=== PATIENT | male | born 1935 | race Caucasian/White ===

== ENCOUNTER → 2024-01-06 11:08 | Outpatient (REF) | payer MEDICARE, OTHER, SELFPAY ==
[2024-01-06 11:40] LABS: Blood Urea Nitrogen 22 mg/dl (9-20); Calcium 8.6 mg/dl (8.4-10.2); Carbon Dioxide 25 mmol/L (22-30); Chloride 101 mmol/L (98-107); Glucose 84 mg/dl (70-99); Potassium 4.2 mmol/L (3.5-5.1); Sodium 136 mmol/L (135-145); eGFR > 60.00
== END ==
LOC: OLABN 11:08
PROVIDERS: ATTENDING PHYSICIAN Student in an Organized Health Care Education/Training Program
DX: I10 Essential (primary) hypertension (principal)
CPT/HCPCS: 36415; 80048

== ENCOUNTER → 2024-05-05 09:29 | Outpatient (REF) | payer MEDICARE, OTHER, SELFPAY ==
[2024-05-05 10:19] LABS: % Basophils 0.5 % (0-2); % Eosinophils 2.9 % (0-6); % Immature Granulocytes 0.6 % (0-0.5); % Lymphocytes 22.1 % (20.5-51.1); % Monocytes 8.1 % (1.7-9.3); % Neutrophils 65.8 % (42.2-75.2); Absolute Basophils 0.1 10^3/uL (0-0.2); Absolute Eosinophils 0.3 10^3/uL (0-0.7); Absolute Immature Granulocytes 0.1 10^3/uL (0-0.05); Absolute Lymphocytes 2.3 10^3/uL (1.2-3.4); Absolute Monocytes 0.8 10^3/uL (0.1-0.6); Absolute Neutrophils 6.9 10^3/uL (1.4-6.5); Hemoglobin 10.8 g/dL (13.0-18.0); Mean Corp Hgb Conc. 30.9 g/dL (33.0-37.0); Mean Corpuscular Hgb 26.7 pg (27.0-31.0); Mean Corpuscular Volume 86.6 fL (80.0-94.0); Mean Platelet Volume 10.6 fL (7.4-10.4); Nucleated Red Blood Cells % 0 % (-); Platelet Count 178 10^3/uL (130-400); Red Blood Cell Count 4.04 10^6/uL (4.70-6.10); Red Cell Dist. Width 14.8 % (11.5-14.5); White Blood Cell Count 10.4 10^3/uL (4.8-10.8)
[2024-05-05 10:34] LABS: ALT (SGPT) 28 U/L (0-50); AST (SGOT) 30 U/L (17-59); Albumin 3.3 g/dl (3.5-5.0); Alkaline Phosphatase 105 U/L (38-126); Blood Urea Nitrogen 26 mg/dl (9-20); Calcium 8.7 mg/dl (8.4-10.2); Carbon Dioxide 26 mmol/L (22-30); Chloride 104 mmol/L (98-107); Glucose 86 mg/dl (70-99); Potassium 4.3 mmol/L (3.5-5.1); Sodium 140 mmol/L (135-145); Total Bilirubin 0.7 mg/dl (0.2-1.3); Total Protein 6.2 g/dl (6.3-8.2)
== END ==
LOC: OLABN 09:29
PROVIDERS: ATTENDING PHYSICIAN Student in an Organized Health Care Education/Training Program
DX: I10 Essential (primary) hypertension (principal)
CPT/HCPCS: 36415; 80053; 85025

== ENCOUNTER 2024-06-04 08:13 | Inpatient (IN) | payer MEDICARE, OTHER, SELFPAY ==
[2024-06-04] VITALS (36 sets, daily range): BP systolic 70–165; BP diastolic 33–120
[2024-06-04] MEDS: NSS 1000 IV ×5 (03:09→17:13)
[2024-06-04] MEDS: ATROPINE 0.1 MG/ML SYRINGE 0.5 MG IV ×2 (03:14→07:06)
[2024-06-04 03:18] LABS: % Basophils 0.6 % (0-2); % Eosinophils 1.4 % (0-6); % Immature Granulocytes 0.9 % (0-0.5); % Lymphocytes 17.6 % (20.5-51.1); % Monocytes 7.4 % (1.7-9.3); % Neutrophils 72.1 % (42.2-75.2); Absolute Basophils 0.1 10^3/uL (0-0.2); Absolute Eosinophils 0.2 10^3/uL (0-0.7); Absolute Immature Granulocytes 0.1 10^3/uL (0-0.05); Absolute Lymphocytes 2.4 10^3/uL (1.2-3.4); Absolute Neutrophils 9.7 10^3/uL (1.4-6.5); Hematocrit 34.8 % (39.0-52.0); Hemoglobin 11.2 g/dL (13.0-18.0); Mean Corp Hgb Conc. 32.2 g/dL (33.0-37.0); Mean Corpuscular Hgb 26.9 pg (27.0-31.0); Mean Corpuscular Volume 83.5 fL (80.0-94.0); Mean Platelet Volume 9.7 fL (7.4-10.4); Nucleated Red Blood Cells % 0 % (-); Platelet Count 221 10^3/uL (130-400); Red Blood Cell Count 4.17 10^6/uL (4.70-6.10); Red Cell Dist. Width 15.9 % (11.5-14.5); White Blood Cell Count 13.4 10^3/uL (4.8-10.8)
[2024-06-04 03:43] LABS: ALT (SGPT) 44 U/L (0-50); AST (SGOT) 40 U/L (17-59); Albumin 3.6 g/dl (3.5-5.0); Alkaline Phosphatase 144 U/L (38-126); Blood Urea Nitrogen 52 mg/dl (9-20); Calcium 8.9 mg/dl (8.4-10.2); Carbon Dioxide 19 mmol/L (22-30); Chloride 104 mmol/L (98-107); Glucose 111 mg/dl (70-99); Magnesium 2.2 mg/dl (1.6-2.3); Sodium 135 mmol/L (135-145); Total Bilirubin 0.8 mg/dl (0.2-1.3); Total Protein 6.6 g/dl (6.3-8.2); Troponin I 0.015 ng/ml; eGFR 26.64
--- NOTE | 2024-06-04 04:53 | ED.GENMED ---
History of Present Illness
General
Chief Complaint: Heart Rate Problem
Source: ambulance crew and custodial
Exam Limitations: dementia
Time Seen by Provider: 06/04/24 03:07
Nursing documentation reviewed up to this point in time: agreed with
History of Present Illness
History of Present Illness:
This is an 88-year-old gentleman, chronic resident of local custodial. He has history of dementia, A-fib, CHF, hypertension, hyperlipidemia, anemia, GI bleed.
He is sent to the ED by custodial staff after discovering during routine vital sign check tonight that his heart rate was low, blood pressure was low and reported pulse ox was low.
Patient apparently has remained asymptomatic, at his baseline mental state and baseline functional status.
According to EMS, noted to be bradycardic in the 40s to 50s without hypotension and without hypoxia. Normal pulse ox. Has not required supplemental oxygen.
Upon review of custodial records. Patient is chronically maintained on propranolol 20 mg twice daily.
Newer medications include mirtazapine 7.5 mg that was started May 11, 2024.
A nutritional/vitamin supplement EVENTA was started May 21.
Due to advanced dementia and what I suspect is language barrier, history from patient is severely limited.
shelter records note full CODE STATUS.
Past History
Past History
ED Past Medical History: Arrthythmia (Chronic A-fib), CHF, HTN, Hypercholesterolemia and Other (Dementia; anemia, GI bleed)
ED Past Surgical History: Appendectomy
Social History
Personal:
Living: custodial
Employment: Retired
Family History
Family History: Unable to obtain
Phy Exam
Physical Exam
Physical Exam:
GENERAL: 88-year-old gentleman appears somewhat chronically debilitated. Sleeps when undisturbed, easily arousable. Once awake he does follow a few simple questions and overall appears in no acute distress.
EYE: pupils equal and reactive. anicteric
NECK: Supple, nontender, no meningismus, no significant adenopathy.
ENT: posterior pharynx is clear, oral mucosa is dry. No rhinorrhea.
CARDIAC: Irregularly irregular, bradycardic, no murmur.
LUNGS: Clear breath sounds bilaterally, no acute respiratory distress, no wheezes/rales/rhonchi
ABDOMEN: Soft, nondistended, without focal tenderness, normoactive bowel sounds. No palpable masses.
NEUROLOGICAL: Awake, follows a few simple commands. No focal neuro deficits.
SKIN: Warm and dry, normal color, skin intact. No rash.
MUSCULOSKELETAL: +1 pitting edema bilateral lower extremities, peripheral pulses are full and equal b/l. No palpable tenderness.
PSYCH: Normal and appropriate interaction.
Course
Orders/Labs/Results
Orders:
Orders
06/04/24 02:39
EKG- Treatment ONCE
06/04/24 02:41
EKG [Electrocardiogram (*1)] Urgent
Reason for Study: Bradycardia / Tachycardia
EKG- Treatment ONCE
06/04/24 03:01
Complete Blood Count/With Diff Urgent
Comprehensive Metabolic Panel Urgent
Magnesium Urgent
TSH Reflex To Free T4 Urgent
Troponin I Urgent
06/04/24 03:09
0.9% Sodium Chloride 1000 ml [Nss] 1,000 ml IV BOLUS
Atropine Sulfate [Atropine 0.1 mg/ml Syringe] 0.5 mg IV NOW STA
06/04/24 03:12
Atropine Sulfate [Atropine 0.1 mg/ml Syringe] 1 mg .ROUTE .STK-MED ONE
06/04/24 04:00
0.9% Sodium Chloride 1000 ml [Nss] 1,000 ml IV BOLUS
06/04/24 04:52
Lactic Acid Urgent
06/04/24 04:57
Bladder Scan- Treatment ONCE
06/04/24 05:27
Lorazepam [Ativan] 1 mg IM NOW STA
06/04/24 05:31
Urinalysis Reflex To Culture Routine
Comment: RECOLLECT
06/04/24 06:08
Basic Metabolic Panel Urgent
06/04/24 06:27
Restraints - Non Violent As Directed
Justification-Patient:: 1-Attempts to remove tube
Restraint Type-: Soft Limb-L&R Wrist/4rail
Apply From (date): 06/04/24
Apply from (time): 06:28
Remove (date): 06/05/24
Remove (time): 23:59
06/04/24 06:30
0.9% Sodium Chloride 1000 ml [Nss] 1,000 ml IV BOLUS
06/04/24 06:42
CXR Port [CR Chest Portable - 1 View] Urgent
Comment:
Reason For Exam: Hypothermia
Reason Study Needs to be Portable: Unable to Transport
06/04/24 06:47
Atropine Sulfate [Atropine 0.1 mg/ml Syringe] 0.5 mg IV NOW STA
Abnormal Lab Results
06/04/24 06/04/24
03:01 06:08
WBC 13.4 H 10^3/uL
(4.8-10.8)
RBC 4.17 L 10^6/uL
(4.70-6.10)
Hgb 11.2 L g/dL
(13.0-18.0)
Hct 34.8 L %
(39.0-52.0)
MCH 26.9 L pg
(27.0-31.0)
MCHC 32.2 L g/dL
(33.0-37.0)
RDW 15.9 H %
(11.5-14.5)
Abs Immat Gran (auto) 0.1 H 10^3/uL
(0-0.05)
Absolute Neuts (auto) 9.7 H 10^3/uL
(1.4-6.5)
Absolute Monos (auto) 1.0 H 10^3/uL
(0.1-0.6)
Immature Gran % 0.9 H %
(0-0.5)
Lymphocytes % 17.6 L %
(20.5-51.1)
Potassium 6.0 H mmol/L 5.8 H mmol/L
(3.5-5.1) (3.5-5.1)
Chloride 110 H mmol/L
(98-107)
Carbon Dioxide 19 L mmol/L 17 L mmol/L
(22-30) (22-30)
BUN 52 H mg/dl 47 H mg/dl
(9-20) (9-20)
Creatinine 2.3 H mg/dL 2.2 H mg/dL
(0.7-1.3) (0.7-1.3)
Glucose 111 H mg/dl 102 H mg/dl
(70-99) (70-99)
Calcium 8.2 L mg/dl
(8.4-10.2)
Alkaline Phosphatase 144 H U/L
(38-126)
06/04/24 03:01
06/04/24 06:08
Vital Signs
Initial and Last Documented VS:
Initial Vital Signs
Temp Pulse Ox
96.3 F L 96
06/04/24 02:44 06/04/24 02:44
Last Documented Vital Signs
Temp Pulse Resp BP Pulse Ox
96.3 F L 56 17 110/45 100
06/04/24 02:44 06/04/24 06:15 06/04/24 06:15 06/04/24 05:00 06/04/24 06:01
MDM/Problems Addressed
Differential Diagnosis Includes:
Patient presents with bradycardia. EKG shows atrial fibrillation with slow ventricular response. Somewhat soft blood pressure. Overall appears comfortable. Pulse ox is normal and no respiratory distress.
Concern for electrolyte abnormality, AV davy disease, inadvertent beta-charity overdose however less likely that patient resides in a custodial.
Will give an IV dose of atropine, IV fluids. Labs are pending.
*Pulse Oximetry
Patient hypoxic: no
*EKG
Interpreted by ED Provider?: Yes
Interpretation: abnormal
Comparison EKG: changes noted (Bradycardia is new compared to previous. A-fib is chronic)
Rate: bradycardiac
Rhythm: a-fib
Mcrae: normal axis
Interval: long QT
QRS Pattern: normal QRS
Ischemia: no ischemia
*Mica Laminating Machine Feeder Interpretation
Rate: bradycardiac
Interpretation: abnormal
Rhythm: a-fib
*Critical Care Note
Total Time (30-74mins, 75-104mins- exclusive of procedures): 40
comment:
Critical care statement: A total of 40 minutes of critical care time was provided for this patient. This includes management of unstable vital signs, evaluation of the patient at bedside, reviewing the patient's pertinent medical records, discussion
with consultants, review of old EKGs and review of pertinent medical records. This time with separate from time utilized to perform the aforementioned documented procedures
Update Note
Update Note:
06:30
Hypotension has improved with IV fluids and heart rate has improved after an IV dose of atropine.
Labs are remarkable for acute kidney injury with BUN and creatinine elevated 52/2.3. Uptrend from previous of 1.5 of 1 month ago.
Potassium 6.0.
Clinically patient appears dehydrated.
He has received near 2 L normal saline.
Bladder scan 400 mL, has been straight cathed for 450 mL of significantly cloudy urine. No definitive evidence of urinary retention and according to records no prior history of BPH nor urinary retention.
Lactic acid is normal.
Concern for UTI. Urinalysis is pending. Will continue IV fluids, continue nuclear monitoring technician and admit to hospitalist service.
Will recheck BMP. If potassium remains elevated will treat with IV dextrose, insulin, bicarb and calcium.
ED Attending Note
-
Portions of this chart may have been created with voice recognition software.� Occasional wrong word or��sound alike� substitutions may have occurred due to the inherent limitations of voice recognition software.
Discharge Plan
Departure
Patient Disposition: Admit
Date of Disposition: 06/04/24
Time of Disposition: 05:44
Admit to: Telemetry
Admit to doctor: Melvin
Presentation/result/management discussed w/ accepting MD/DO: Hospitalist
Condition: Serious
Discharge Problem:
atrial fibrillation with bradycardia, Hypotension, Acute kidney injury
Prescriptions:
No Action
furosemide 40 mg Tablet
40 mg PO DAILY
primidone 50 mg Tablet
100 mg PO HS
acetaminophen 325 mg Tablet
650 mg PO Q4H PRN (Reason: pain/fever)
enalapril maleate 10 mg Tablet
10 mg PO DAILY
magnesium hydroxide [Milk of Magnesia] 400 mg/5 mL Suspension
30 ml PO DAILY PRN (Reason: no BM)
propranolol 20 mg Tablet
20 mg PO BID
Eventa
1 cap PO DAILY
bisacodyl 10 mg Suppository
10 mg KS BID PRN (Reason: constipation) Qty: 12 0RF
Enema 19-7 gram/118 mL Enema
135 ml KS DAILYPRN PRN (Reason: constipation) Qty: 133 0RF
Rx Instructions:
prn unresponsive to suppositories
polyethylene glycol 3350 17 gram Powder In Packet
17 g PO DAILY Qty: 30 0RF
memantine 10 mg Tablet
10 mg PO DAILY Qty: 30 0RF
pantoprazole 40 mg Tablet,Delayed Release (Dr/Ec)
40 mg PO BID Qty: 60 0RF
sertraline 25 mg Tablet
25 mg PO DAILY
mirtazapine 7.5 mg Tablet
7.5 mg PO HS
Referrals:
Smooth Gordon DO [Family Provider] -
Interventions
Interventions:
*Risk Screen - Suicide Last Done: 06/04/24 02:44
*General Assessment Last Done: 06/04/24 02:44
*Neglect/Abuse Screening Last Done: 06/04/24 02:44
*ED COVID-19 Vaccine History Last Done: 06/04/24 02:44
ED- Cardiac Assessment Last Done: 06/04/24 02:44
ED- Pulmonary Assessment Last Done: 06/04/24 02:44
Discharge Date and Time
Print Language: GREENLANDIC
[2024-06-04 05:32] LABS: Lactic Acid 0.9 mmol/L (0.7-2.0)
[2024-06-04] MEDS: ATIVAN 1 MG IM (05:44)
[2024-06-04 06:42] LABS: Blood Urea Nitrogen 47 mg/dl (9-20); Calcium 8.2 mg/dl (8.4-10.2); Carbon Dioxide 17 mmol/L (22-30); Chloride 110 mmol/L (98-107); Glucose 102 mg/dl (70-99); Potassium 5.8 mmol/L (3.5-5.1); Sodium 138 mmol/L (135-145)
--- NOTE | 2024-06-04 06:57 | HPS.HSE ---
Addendum entered and electronically signed by Juan Charles DO 06/04/24 07:23:
Addendum:
At bedside when Doss catheter placed. Grossly purulent urine returned and draining into device.
Patient more alert s/p second dose of atropine and Doss placement.
Begin IV abx for clearly infected urine.
Septic shock - continue IVFs +/- pressors as needed.
Follow for clinical improvement. Follow-up culture data.
Original Note:
Family Physician
-
Family Physician: Smooth Gordon, DO
Chief Complaint
-
Bradycardia / Hypotension / Hypoxemia
History of Present Illness
Patient is an 88y M with PMH significant for dementia, CHF and A-Fib who presents to ED from local [facility] for evaluation of bradycardia, hypotension and hypoxemia. During routine rounds this evening, patient was found to have HR = 40, BP = 80/50 and
SpO2 = 76% RA. He had no complaints and per HI staff seemed at his baseline mental status at that time. He was sent to the ED for further evaluation and treatment. In the ED patient was hypotensive and bradycardic. He was note hypoxemic here.
He received a 0.5mg dose of atropine with improvement in his BP and HR. EKG showed slow A-Fib / junctional bradycardia.
Labs revealed patient to be in ZULAY with hyperkalemia.
Unfortunately, patient then became agitated, combative and aggressive with staff in the ED. He was given Ativan 1mg IV.
At the time of my examination, patient is poorly responsive and is again bradycardic in the 40s and hypotensive with SBP in the 70s.
Medical History
Past Medical History
Past Medical History: Reports Other
Additional Past Medical History:
Senile Dementia
Atrial fibrillation
HFpEF
Hypertension
Essential Tremor
GERD
Past Surgical History: Reports Other
Additional Past Surgical History:
Unknown
Social History
Unable to obtain full social history at this time due to: Dementia
Family History
Family History: Unable to Obtain
Allergies / Home Medications
Allergies reflects when Allergies were last updated in [facility].
Home Medications with original date entered in [facility]
Allergy/Medication List:
Allergies
Allergy/AdvReac Type Severity Reaction Status Date / Time
No Known Allergies Allergy Verified 06/04/24 02:41
Home Medications
Eventa 1 cap PO DAILY 06/24/22
acetaminophen 325 mg tablet 650 mg PO Q4H PRN pain/fever 06/24/22
enalapril maleate 10 mg tablet 10 mg PO DAILY 06/24/22
furosemide 40 mg tablet 40 mg PO DAILY 06/24/22
magnesium hydroxide 400 mg/5 mL oral suspension (Milk of Magnesia) 30 ml PO DAILY PRN no BM 06/24/22
primidone 50 mg tablet 100 mg PO HS 06/24/22
propranolol 20 mg tablet 20 mg PO BID 06/24/22
bisacodyl 10 mg rectal suppository 10 mg [place] BID PRN constipation #12 ea 06/29/22
memantine 10 mg tablet 10 mg PO DAILY #30 tabs 06/29/22
pantoprazole 40 mg tablet,delayed release 40 mg PO BID #60 tabs 06/29/22
polyethylene glycol 3350 17 gram oral powder packet 17 g PO DAILY #30 ea 06/29/22
sodium phosphates 19 gram-7 gram/118 mL enema (Enema) 135 ml [place] DAILYPRN PRN constipation #133 mL 06/29/22
mirtazapine 7.5 mg tablet 7.5 mg PO HS 06/04/24
sertraline 25 mg tablet 25 mg PO DAILY 06/04/24
Review of Systems
-
Unable to obtain full review of systems at this time due to: Dementia
Physical Exam
Vital Signs
Vital Signs
Temp Pulse Resp BP Pulse Ox
96.3 F L 56 17 110/45 100
06/04/24 02:44 06/04/24 06:15 06/04/24 06:15 06/04/24 05:00 06/04/24 06:01
Physical Exam
General: Other (Lethargic / poorlry responsive 88y M )
HEENT: Other (Dry MM. Neck supple.)
Respiratory: Clear; No Wheezes, Rales or Rhonchi
Cardiac: S1/S2 and Bradycardia
GI: Soft, Non Tender, Non Distended and Normal Bowel Sounds
Musculoskeletal: No Clubbing, No Cyanosis and Other (1+ edema at the ankles bilaterally.)
Laboratory Results
-
06/04/24 03:01
06/04/24 06:08
Laboratory Results
Lactic Acid 0.9 mmol/L (0.7-2.0) 06/04/24 04:52
Total Bilirubin 0.8 mg/dl (0.2-1.3) 06/04/24 03:01
AST 40 U/L (17-59) 06/04/24 03:01
ALT 44 U/L (0-50) 06/04/24 03:01
Alkaline Phosphatase 144 U/L (38-126) H 06/04/24 03:01
Troponin I 0.015 ng/ml 06/04/24 03:01
Impression/Plan
-
A/P: Patient is an 88y M with PMH significant for dementia, A-Fib and hypertension who present sto ED from local [facility] for evaluation and hypotension and bradycardia
Bradycardia
Hypotension
Hypothermia
- Admit for further evaluation and treatment.
- Responded briefly to atropine - second dose given now.
- Recurrent bradycardia / hypotension (? related to Ativan dose).
- Epinephrine infusion for now and titrate as needed.
- Hold propranolol.
- Check flu status.
- Cardiology evaluation for additional recommendations.
ZULAY
Hyperkalemia
- Place Doss now.
- Hold PO medications including Lasix and enalapril.
- IVF support.
- Follow for improvement in labs / lytes.
Permanent Atrial Fibrillation
Benign Hypertension
- Holding all meds as noted above with slow heart rates and low BP.
Senile Dementia with Behavioral Disturbance
- Avoid further sedating medications.
- Hold mirtazapine which is his newest added medication (started 05/11/24).
DVT Prophylaxis: SCDs
Code Status: Full
Attempted to call . No answer. Generic voice mail - no message left.
[2024-06-04] MEDS: ROCEPHIN 1000 MG IV (07:35)
[2024-06-04] MEDS: STERILE WATER FOR INJECTION 10 ML IV (07:35)
[2024-06-04 07:44] LABS: Urine Albumin 3+ (Neg - Trace); Urine Bilirubin Negative (Negative); Urine Character Cloudy (Clear); Urine Color Yellow; Urine Glucose Negative (Negative); Urine Ketone Negative (Negative); Urine Leukocyte 3+ (Negative); Urine Nitrite Negative (Negative); Urine Occult Blood 4+ (Negative); Urine Specific Gravity 1.015 (<1.030); Urine Urobilinogen Negative (Neg - 1+)
[2024-06-04 08:18] LABS: Urine White Cell >100 /HPF (0-5)
--- NOTE | 2024-06-04 09:20 | PTOTSP ---
Per chart review on last admission in 2022, the patient is a long-term care resident, total care and Alayna lift at baseline. No functional goals to warrant PT consult, will sign off.
--- NOTE | 2024-06-04 09:48 | PTCARENOTE ---
Pt rec'd from ED into ICU 3372, pulled over to bed. Per chart review, pt is total care, non ambulatory, Hx Lewey body dementia noted. Pt restrained per ED. Doss in place draining milky urine. Pt's HR currently in 50-60s, hx PAF noted. Order for
cards consult rec'd. Pt not meeting parameters to initiate Epi infusion at this time. Pt oriented to room and plan of care by nursing staff, orders reviewed, safe environment maintained. Bed alarm in place and activated.
[2024-06-04 10:54] LABS: Troponin I 0.014 ng/ml
[2024-06-04 11:10] LABS: Blood Urea Nitrogen 44 mg/dl (9-20); Carbon Dioxide 18 mmol/L (22-30); Chloride 108 mmol/L (98-107); Estimated Creatinine Clearance 34 ml/min; Glucose 82 mg/dl (70-99); Potassium 4.8 mmol/L (3.5-5.1); Sodium 137 mmol/L (135-145)
--- NOTE | 2024-06-04 11:16 | CON.INTV ---
Consultation
Consultation Request
Date/Time Consultation Requested: 06/04/2024-1 PM
Date/Time Consultation Performed: 06/04/2024-1:30 PM
Requesting Provider: Hospitalist
Performing Provider: Dr. Betts
Reason for Consultation: Sepsis
Medical History
-
Chief Complaint: Bradycardia, hypotension, sepsis
History of Present Illness:
88-year-old male with underlying Lewy body dementia, atrial fibrillation, heart failure preserved EF, hypertension, GERD presented with bradycardia, hypotension and hypoxemia found to have UTI and septic shock-carpenter assistant consulted for septic
shock/critical care management 06/04/2024. Patient is confused and nonverbal at this time. Review of systems was unobtainable.
Past Medical History
Past Medical History: None (Hypertension. Atrial fibrillation. Dementia. Essential tremor. GERD. History of GI bleed. Diverticulosis. Renal calculi. Appendectomy. Left inguinal hernia repair.)
Social History
Tobacco: Non-smoker
Alcohol: None
Drug: None
Occupational Exposures: No known asbestos exposure
Environmental Exposures: No known tuberculosis exposure
Family History
Family History: Reviewed & Not Pertinent
Allergies / Home Medications
Allergies
Allergy/AdvReac Type Severity Reaction Status Date / Time
No Known Allergies Allergy Verified 06/04/24 02:41
Home Medications
�Medication �Instructions �Recorded �Confirmed �Last Taken �Type
Eventa 1 cap PO BID 06/24/22 06/04/24 Unknown History
acetaminophen 325 mg tablet 650 mg PO Q4HPRN PRN mild 06/24/22 06/04/24 Unknown History
pain/fever
enalapril maleate 10 mg tablet 10 mg PO DAILY 06/24/22 06/04/24 Unknown History
furosemide 40 mg tablet 40 mg PO DAILY 06/24/22 06/04/24 Unknown History
magnesium hydroxide 400 mg/5 mL 30 ml PO DAILYPRN PRN no BM 06/24/22 06/04/24 Unknown History
oral suspension (Milk of Magnesia)
primidone 50 mg tablet 100 mg PO HS 06/24/22 06/04/24 Unknown History
propranolol 20 mg tablet 20 mg PO BID 06/24/22 06/04/24 Unknown History
memantine 10 mg tablet 10 mg PO DAILY #30 tabs 06/29/22 06/04/24 Unknown Rx
polyethylene glycol 3350 17 gram 17 g PO DAILY #30 ea 06/29/22 06/04/24 Unknown Rx
oral powder packet
bisacodyl 10 mg rectal suppository 10 mg [place] BIDPRN PRN if no bm aftr 06/04/24 06/04/24 Unknown History
mom
mirtazapine 7.5 mg tablet 7.5 mg PO HS 06/04/24 06/04/24 Unknown History
pantoprazole 40 mg tablet,delayed 40 mg PO DAILY 06/04/24 06/04/24 Unknown History
release
sertraline 25 mg tablet 25 mg PO DAILY 06/04/24 06/04/24 Unknown History
sodium phosphates 19 gram-7 135 ml [place] DAILYPRN PRN if no bm 06/04/24 06/04/24 Unknown History
gram/118 mL enema (Enema) aftr dulcalax
Review of Systems
-
Unable to Obtain full review of systems at this time due to: Other (Per HPI)
Vitals / Labs / Diagnostic Testing
Vital Signs
Temp Pulse Resp BP Pulse Ox
96.3 F L 61 15 133/58 100
06/04/24 02:44 06/04/24 10:30 06/04/24 10:30 06/04/24 10:00 06/04/24 10:15
Lab Data
06/04/24 03:01
06/04/24 10:31
Microbiology
06/04/24 07:23 Nasal Swab Influenza Types A & B (CYNTHIA) - Final
Negative for Influenza A & B, NAAT
Negative results must be combined with clinical observations
and patient history.
Nucleic Acid Amplification test (NAAT)performed on the
[employer] platform.
Diagnostic Testing:
Physical Exam
-
Exam:
Well-nourished and well-developed in no apparent distress
HEENT-atraumatic, normocephalic
Neck-supple, no JVD, no bruit
Heart irregular with systolic murmur
Chest with diminished breath sounds, coarse breath sounds and few rhonchi
Abdomen-soft, nontender, nondistended, no hepatosplenomegaly
Extremities-no cyanosis, clubbing, edema and good peripheral pulses
Integument-intact, no rashes, lesions or ecchymosis
Neurologically not alert, not oriented moving extremities
Assessment
-
88-year-old male with underlying Lewy body dementia, atrial fibrillation, heart failure preserved EF, hypertension, GERD presented with bradycardia, hypotension and hypoxemia found to have UTI and septic shock-carpenter assistant consulted for septic
shock/critical care management 06/04/2024.
Septic shock unresponsive to fluids requiring pressors
Bradycardia-status post atropine x 2
Hypothermia
Leukocytosis
Igumam-shzcymhsik-focdnvrhct 11.2
ZULAY
Metabolic acidosis
Mild hyperglycemia
Conditions present prior to admission:
Hypertension.
Atrial fibrillation-permanent.
Dementia.
Essential tremor.
GERD.
History of GI bleed.
Diverticulosis.
Renal calculi.
Appendectomy. Left inguinal hernia repair.
Plan
Admit patient to medical intensive care unit for persistent hypotension despite fluid resuscitation requiring pressors
Supplement oxygen as needed
High flow oxygen if needed
BiPAP if necessary
Intubate and mechanically ventilate if necessary
Aspiration precautions
Nebulizers if needed
Obtain cultures
Empiric antibiotics
Consider Infectious disease consultation
Monitor leukocytosis
Fluid resuscitation with 30 mL/kg crystalloid-preferably lactated ringer-(less ZULAY) with subsequent boluses as needed
Monitor lactate
Follow CVP if possible
Attempt noninvasive bedside tissue perfusion evaluation to see if fluid bolus responsive
Measure pulse pressure and stroke volume variation if patient on ventilator, passively breathing without arrhythmia and with temporary large tidal volume ventilation and if > 13% then likely fluid bolus responsive
If patient active then consider measuring bedside leg lift for 3 minutes and if cardiac output increases or if there is a rise of 2-4 on end-tidal CO2 then fluid bolus
If bedside ultrasound available then measure IVC diameter variation to evaluate for fluid bolus responsiveness
Begin pressors as needed for MAP goal of [id number] first, then Vasopressin and consider Angiotensin II if continues to be hypotensive, consider epinephrine or dopamine in this patient but is bradycardic
Consider methylene blue if available-specific inhibitor of induced nitric oxide synthase iNOS and its downstream enzyme soluble guanylate cyclase-noninferiority study shown to reduce time to vasopressor discontinuation, decreased ICU length of stay,
hospital stay but no change in mortality-published Critical Care 07/02/2022
If persistently hypotensive then consider checking random cortisol-hydrocortisone if random less than 3, if 3-15 then consider ACTH stimulation test
If persistently hyperthermic then correcting hyperthermia can decrease pressor requirements, increased chances of reversal of shock and decrease mortality
Monitor arrhythmias-atropine given
Cardiology consultation
Beta-blockers on hold
Epinephrine if needed
Monitor renal function
Nephrology evaluation if renal function does not improve with fluids
Monitor acidosis-bicarb if needed
DVT prophylaxis-mechanical, recent GI bleed, consider pharmacological with close observation
Early nutrition if possible-aspiration precautions
Early mobilization/bedside range of motion
Establish CODE STATUS
Critical care statement: A total of 65 minutes of critical care time was provided for this patient today. This includes management of unstable vital signs, evaluation of the patient at bedside, reviewing the patient's pertinent medical records
including radiographs, pressor management, microbiology, laboratory evaluations, and discussion with primary team, consultants, pharmacy, nutrition, physical therapy, case management, charge nurse, critical care nursing, and respiratory therapy.
Diagnostic data:
Chest x-ray 06/24/2022-bibasilar opacifications, suspected mild vascular congestion
Chest x-ray 06/04/2024-basilar opacification suspicious for pneumonia
Data Reviewed
-
EKG: Report reviewed by me
Radiology: Report reviewed by me
CT Scan: Report reviewed by me
Medical Tests (Nuc Med, Echo etc): Report reviewed by me
Labs: Labs reviewed by me
Old Records: Reviewed
Critical Care Time (in minutes): 65
--- NOTE | 2024-06-04 11:30 | CON.CAR ---
Addendum entered and electronically signed by Kim Evans DO 06/04/24 12:22:
I saw and examined the patient.
The Manager Games's note was reviewed and I agree with the note.
Comment: I had the pleasure to see Mr. Salvador in ICU bed 3372 with nursing present. Patient is overall a poor historian with underlying Lewy body dementia. He offers no specific complaints except repeating that he is 'ok' and 'strong'. Patient
came to ER very early this morning from his [place] [facility] with complaints of low HR, low BP and was admitted with UTI and sepsis, cardiology is now consulted for bradycardia. Patient was last admitted to 06/2022 in the setting of GI bleed and at that
time he was thought to have permanent A-fib. 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 Patient was taking propranolol 20 mg twice daily prior to admission. Patient is not chronically
anticoagulated as far back as 2022 admission presumably due to age and patient/family choice. In ER this morning the patient was noted to be hypothermic and HR was low with underlying AF. Patient was given a total of atropine x 2. Although
blood pressures were initially low that improved without need for pressors. In the ER he also had Doss catheter placed with dixon purulent drainage and he is being treated for sepsis. No reports of CP or SOB. Overnight, heart rates remained in
the 50s to 60s without significant bradycardia arrhythmia or pauses.
GEN: 88-year-old frail gentleman. No acute distress.
HEENT: Mucous membranes moist
LUNGS: RA. CTA B/L without audible wheeze
CV: Irregularly irregular. Positive S1-S2. No murmurs
ABD: soft, BS+, NT, ND
EXT: Trace B/L LE edema.
SKIN: No rash
: +Doss catheter in place with cloudy urine with sediment
Plan:
88-year-old gentleman with history of Lewy body dementia and permanent atrial fibrillation not on chronic anticoagulation presents from halfway with hypotension, hypothermia being treated for septic shock, presumed source
-Blood pressures have stabilized not requiring pressors
-Lactic acid 0.9
-Patient with permanent atrial fibrillation on propranolol noted to be bradycardic in the 40s requiring atropine in the ED.
-Overnight heart rates have improved; telemetry atrial fibrillation with heart rates in the 50s and 60s without significant bradycardia arrhythmia or pauses.
-Will check a 2D echocardiogram
-Continue to hold AV davy blocking agents
-No acute ischemic changes on EKG. Patient unreliable historian but no reports of chest pain. Troponin 0.015 and 0.014.
-Influenza negative. Blood and urine cultures pending. Antibiotics will be deferred to primary
Permanent atrial fibrillation not chronically anticoagulated
- Slow atrial fibrillation on admission in the setting of septic shock, acute renal sufficiency, hyperkalemia, hypothermia on outpatient propranolol. Received atropine x 2 in the ED.
- Heart rates have improved.
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
- Patient was last admitted to 06/2022 in the setting of GI bleed and at that time he was thought to have permanent A-fib. 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
- Hold outpatient propranolol and avoid AV davy blocking agents at this time.
- No current indication for PPM placement
- TSH within normal limit
Acute renal insufficiency with baseline creatinine in December 2023 1
-Creatinine on admission 2.3. Repeat creatinine 1.7 after Doss insertion
-Potassium initially 5.8 and has improved to 4.7
-Maintain Doss
-Antibiotics for presumed UTI
-Continue to hold enalapril and Lasix
History of Lewy body dementia- Noted
Will attempt to contact family to obtain additional information and to discuss CODE STATUS.
Original Note:
Consultation
Consultation Request
Date/Time Consultation Requested: 06/04/24
Date/Time Consultation Performed: 06/04/24
Requesting Provider: Dr. Charles
Performing Provider: Dr. Evans
Reason for Consultation: bradycardia
Medical History
-
History of Present Illness:
Patient came to ER very early this morning from his [place] [facility] with complaints of low HR, low BP and was admitted with UTI and sepsis, cardiology is now consulted for bradycardia. Patient was last admitted to 06/2022 in the setting of GI bleed and
at that time he was thought to have permanent A-fib. 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 Patient was taking propranolol 20 mg twice daily prior to admission. Patient is not chronically
anticoagulated as far back as 2022 admission presumably due to age and patient/family choice. In ER this morning the patient was noted to be hypothermic and HR was low with underlying AF. Patient was given a total of atropine x 2 and there was
an order for Epi gtt to start, but it is not currently running. HR now is 64 and he remains in permanent AF. In the ER he also had Doss catheter placed with dixon purulent drainage and he is being treated for sepsis. No reports of CP or SOB.
PMH:
Persistent to permanent Afib
Not chronically anticoagulated due to age and patient choice
Previous admission to for GIB 06/23/22 until 06/29/22
Lewy body dementia
Past Medical History
Past Medical History: Other (in HPI)
Past Surgical History: Other (hernia repair 2012)
Social History
Tobacco: Non-Smoker
Alcohol: None
Drug: None
Living: [facility]
Family History
Family History: Unable to Obtain
Allergies / Home Medications
Allergy/AdvReac Type Severity Reaction Status Date / Time
No Known Allergies Allergy Verified 06/04/24 02:41
�Medication �Instructions �Recorded �Confirmed �Type
Eventa 1 cap PO BID 06/24/22 06/04/24 History
acetaminophen 325 mg tablet 650 mg PO Q4HPRN PRN mild 06/24/22 06/04/24 History
pain/fever
enalapril maleate 10 mg tablet 10 mg PO DAILY 06/24/22 06/04/24 History
furosemide 40 mg tablet 40 mg PO DAILY 06/24/22 06/04/24 History
magnesium hydroxide 400 mg/5 mL 30 ml PO DAILYPRN PRN no BM 06/24/22 06/04/24 History
oral suspension (Milk of Magnesia)
primidone 50 mg tablet 100 mg PO HS 06/24/22 06/04/24 History
propranolol 20 mg tablet 20 mg PO BID 06/24/22 06/04/24 History
memantine 10 mg tablet 10 mg PO DAILY #30 tabs 06/29/22 06/04/24 Rx
polyethylene glycol 3350 17 gram 17 g PO DAILY #30 ea 06/29/22 06/04/24 Rx
oral powder packet
bisacodyl 10 mg rectal suppository 10 mg [place] BIDPRN PRN if no bm aftr 06/04/24 06/04/24 History
mom
mirtazapine 7.5 mg tablet 7.5 mg PO HS 06/04/24 06/04/24 History
pantoprazole 40 mg tablet,delayed 40 mg PO DAILY 06/04/24 06/04/24 History
release
sertraline 25 mg tablet 25 mg PO DAILY 06/04/24 06/04/24 History
sodium phosphates 19 gram-7 135 ml [place] DAILYPRN PRN if no bm 06/04/24 06/04/24 History
gram/118 mL enema (Enema) aftr dulcalax
Review of Systems
-
History Source: Patient
All other systems: Negative unless noted
Physical Exam
Vital Signs
Temp Pulse Resp BP Pulse Ox
96.3 F L 61 15 133/58 100
06/04/24 02:44 06/04/24 10:30 06/04/24 10:30 06/04/24 10:00 06/04/24 10:15
GEN: NAD. Awake and alert.
HEENT: EOMI, MMM
LUNGS: RA. CTA B/L without audible wheeze
CV: Afib on tele. Reg, S1/S2, no murmur
ABD: soft, BS+, NT, ND
EXT: Trace B/L LE edema. No clubbing, cyanosis or lesions B/L
NEURO: Gross non-focal
SKIN: No rash
: +Doss catheter in place with cloudy urine with sediment
Lab Results
06/04/24 03:01
06/04/24 10:31
Troponin I 0.014 ng/ml 06/04/24 10:12
Impression / Plan
-
PCP: Dr. Smooth Gordon
Cardiology: Unknown
Impression:
Admitted with bradycardia, sepsis and UTI 06/04/24
Sepsis
UTI, purulent drainage from Doss
Persistent to permanent Afib with slow ventricular response
Not chronically anticoagulated due to age and patient choice
ZULAY
Hyperkalemia
Previous admission to for GIB 06/23/22 until 06/29/22
Lewy body dementia
Echo 06/04/24: Study pending
Plan:
-Patient came to [place] very early this morning [place] [facility] with complaints of low HR, low BP and was admitted with UTI and sepsis, cardiology is now consulted for bradycardia. Patient was last admitted to 06/2022 in the setting of GI bleed and
at that time he was thought to have permanent A-fib. 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 Patient was taking propranolol 20 mg twice daily prior to admission. Patient is not chronically
anticoagulated as far back as 2022 admission presumably due to age and patient/family choice. In ER this morning the patient was noted to be hypothermic and HR was low with underlying AF. Patient was given a total of atropine x 2 and there was
an order for Epi gtt to start, but it is not currently running. HR now is 64 and he remains in permanent AF. In the ER he also had Doss catheter placed with dixon purulent drainage and he is being treated for sepsis. No reports of CP or SOB.
-ECG reviewed by me shows A-fib with slow VR. No acute ischemic changes
-Patient with at least persistent and possibly even permanent AF. No clear documentation of previous attempts at rhythm control and at last admission 06/2022 it was reported that he was permanent A-fib.
-Now with bradycardia and so outpatient dose of propranolol 20 mg twice daily is on hold. Would not restart AV davy agent
-Patient was given atropine x 2 doses earlier today.
-Currently HR is 64 bpm. No current indication for PPM placement and would continue to follow HR as infection resolves and propranolol washes out.
-Check echo
-Troponin serially normal.
--- NOTE | 2024-06-04 15:29 | W.PN.HOSP.TC ---
Today's Communication/Plan
-
Assessment / Plan
Assessment / Plan
Gen-AAOx3, NAD
HEENT-NC, AT, anicteric, clear oral mm
Neck-supple
CV-reg, no M, +S1/S2
Lungs-clear B/L
Abd-soft, NT, ND
Musculoskeletal-no edema, no deformity
Skin-warm and dry
Neuro-grossly non-focal
Psych-calm, cooperative
Mr. Salvador is a 88-year-old male with medical history of Lewy body dementia, HFpEF, essential tremor, and A-fib who presented from, and A-fib who presented from local senior living with bradycardia, hypotension, and hypoxia. He was found to have
heart rate of 40, BP 80/50, SpO2 76% on room air. He was at his baseline mental status at the time and was sent to the ED for further evaluation. In the ED EKG showed slow A-fib with junctional bradycardia. He was also hypotensive. He was given
dose of atropine with improvement in his BP and heart rate. He later became aggressive with ED staff and was given a dose of IV Ativan after which she was somnolent, bradycardic, and hypotensive. He was bolused 2.5 L of resuscitative fluids and
vasopressors were ordered. Labs revealed leukocytosis of 13,000, ZULAY with a creatinine of 1.7, and urinalysis showing gross pyuria. Doss catheter was placed with purulent urinary output. He has been admitted to the ICU for further evaluation and
management of septic shock secondary to suspected urinary tract infection.
Septic shock:
-Suspect secondary to urinary tract infection
-Continue antibiotic treatment with ceftriaxone 1 g IV daily
-Continue aggressive resuscitative fluids
-Vasopressors as needed
-Follow-up cultures
ZULAY:
-Suspect secondary to poor perfusion in the setting of septic shock
-Continue IV fluids and treatment of underlying urinary tract infection
-Monitor for renal recovery
-Holding TJ inhibitor
Permanent A-fib:
-Holding rate control medications due to bradycardia and hypotension
Lewy body dementia:
-With behavioral disturbance
-Hold sedating medications as able
-Mirtazapine was recently added on 05/11/2024
CODE STATUS:
Anticipated Discharge: > 48 hours
Subjective/Interval History
-
Date of Service: June 04, 2024
Patient was seen and examined at bedside this morning. Resting comfortably. No acute distress.
Objective Data
-
Labs:
Laboratory Results
06/04/24 06/04/24 06/04/24
03:01 06:08 10:31
Sodium 135 138 137
Potassium 6.0 H 5.8 H 4.8
Chloride 104 110 H 108 H
Carbon Dioxide 19 L 17 L 18 L
BUN 52 H 47 H 44 H
Creatinine 2.3 H 2.2 H 1.7 H
Glucose 111 H 102 H 82
Calcium 8.9 8.2 L 8.0 L
Total Bilirubin 0.8
AST 40
ALT 44
Alkaline Phosphatase 144 H
Vital Signs:
Vital Signs
Temp Pulse Resp BP Pulse Ox
97.6 F 86 20 148/120 100
06/04/24 11:40 06/04/24 15:00 06/04/24 15:00 06/04/24 15:00 06/04/24 15:00
I&O
06/03/24 06/04/24 06/05/24
06:59 06:59 06:59
Intake Total 500 / 500
Output Total 500 / 500
Balance 0 / 0
Review of Systems
-
Unable to obtain full review of systems at this time due to: Acuity
Physical Exam
-
General: Appears Chronically Ill
--- NOTE | 2024-06-04 16:04 | PTCARENOTE ---
Pt reassessed. Remains calm and cooperative, however confused, asking for his mother...forgetful to place and situation. Asking for cup of coffee-orders for diet rec'd per attending. Q2T maintained, restraints in place for safety. VSS with no need
for pressors this shift. See flowsheet. Plan discussed with multiple members of care team. Safe environment maintained, bed alarm in place and armed.
[2024-06-04] MEDS: TYLENOL 650 MG PO (20:04)
[2024-06-05] VITALS (14 sets, daily range): BP systolic 104–150; BP diastolic 37–73; BMI 26.4
[2024-06-05] MEDS: NSS 1000 IV ×2 (02:22→08:37)
[2024-06-05 05:23] LABS: Hematocrit 35.1 % (39.0-52.0); Hemoglobin 11.1 g/dL (13.0-18.0); Mean Corp Hgb Conc. 31.6 g/dL (33.0-37.0); Mean Corpuscular Hgb 26.4 pg (27.0-31.0); Mean Corpuscular Volume 83.6 fL (80.0-94.0); Mean Platelet Volume 9.6 fL (7.4-10.4); Platelet Count 196 10^3/uL (130-400); Red Cell Dist. Width 15.8 % (11.5-14.5)
[2024-06-05 05:37] LABS: Blood Urea Nitrogen 31 mg/dl (9-20); Calcium 8.2 mg/dl (8.4-10.2); Carbon Dioxide 15 mmol/L (22-30); Chloride 110 mmol/L (98-107); Estimated Creatinine Clearance 44 ml/min; Glucose 81 mg/dl (70-99); HDL Cholesterol 28 mg/dl; LDL Cholesterol, Calculated 95 mg/dl; Sodium 138 mmol/L (135-145); Total Cholesterol 149 mg/dl (50-199); Triglyceride 131 mg/dl (10-149); Very Low Density Lipoprotein 26 mg/dl (0-30); eGFR 52.84
--- NOTE | 2024-06-05 07:40 | W.PN.INTV ---
Today's Communication / Plan
Recommendations
Wean pressors
Antibiotics
CODE STATUS change
Transfer out of ICU-call pulmonary if respiratory issues arise
Assessment
-
88-year-old male with underlying Lewy body dementia, atrial fibrillation, heart failure preserved EF, hypertension, GERD presented with bradycardia, hypotension and hypoxemia found to have UTI and septic shock-inspector bicycle consulted for septic
shock/critical care management 06/04/2024.
Septic shock unresponsive to fluids requiring pressors
Bradycardia-status post atropine x 2
Hypothermia
Leukocytosis
Uqydsd-apanuxuqcu-eqjjekqelz 11.2
ZULAY
Metabolic acidosis
Mild hyperglycemia
DNR
Conditions present prior to admission:
Hypertension.
Atrial fibrillation-permanent.
Dementia.
Essential tremor.
GERD.
History of GI bleed.
Diverticulosis.
Renal calculi.
Appendectomy. Left inguinal hernia repair.
Plan
Hemodynamics have improved
Supplemental oxygen as needed
BiPAP if necessary
Now a DNR status-DO NOT INTUBATE if respiratory status worsens
Aspiration precautions per protocol
Nebulizers if needed
Cultures reviewed
Urine culture 06/04/2024-Enterococcus
Blood cultures negative
Influenza negative
MRSA screen pending
Empiric antibiotics-currently on ceftriaxone
Follow leukocytosis
Decrease IV fluids
Lactate trended
Wean pressors
Monitor arrhythmias-atropine given
Cardiology consultation noted-correspondence reviewed
Beta-blockers on hold
Epinephrine if needed
Monitor renal function
Nephrology evaluation if renal function does not improve with fluids
Monitor acidosis-bicarb if needed
DVT prophylaxis--Lovenox initiated
Early nutrition if possible-aspiration precautions
Early mobilization/bedside range of motion
If able to be weaned off pressors then transfer out of ICU-call pulmonary if respiratory issues arise
Critical care statement: A total of 38 minutes of critical care time was provided for this patient today. This includes management of unstable vital signs, evaluation of the patient at bedside, reviewing the patient's pertinent medical records
including radiographs, pressor management, microbiology, laboratory evaluations, and discussion with primary team, consultants, pharmacy, nutrition, physical therapy, case management, charge nurse, critical care nursing, and respiratory therapy.
Diagnostic data:
Chest x-ray 06/24/2022-bibasilar opacifications, suspected mild vascular congestion
Chest x-ray 06/04/2024-basilar opacification suspicious for pneumonia
Subjective Dataa
Subjective Data
Date of Service:
Date of Service: June 05, 2024
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
Subjective:
Lethargic but no respiratory distress, no complaints
Review of Systems
General: Other (Per HPI)
Objective Data
Data Reviewed
Vital Signs / I&O / Oxygen:
Vital Signs
Temp Pulse Resp BP Pulse Ox
98.3 F 94 17 136/63 99
06/05/24 04:06 06/05/24 05:01 06/05/24 05:01 06/05/24 05:00 06/05/24 05:01
Intake and Output
06/04/24 06/05/24 06/06/24
06:59 06:59 06:59
Intake Total 2300 / 2300
Output Total 2450 / 2450
Balance -150 / -150
SaO2 99
Physical Exam
General: Respiratory Distress (n) and Comfortable
HEENT: Normocephalic, Anicteric and Moist Mucous Membranes
Cardiovascular: Regular Rhythm and Murmur
Respiratory: Wheeze (n), Crackles, Rhonchi (n), Non-Labored Respirations and Accessory Resp Muscle Use (n)
GI: Soft, Non Distended and Non Tender
Neurology: Alert and No Motor Deficits
Skin: Warm, Good Color, Cyanosis (n) and Jaundice (n)
Labs/Micro/Reports
Lab Data
06/05/24 04:55
06/05/24 04:55
Microbiology
06/04/24 07:23 Nasal Swab Influenza Types A & B (CYNTHIA) - Final
Negative for Influenza A & B, NAAT
Negative results must be combined with clinical observations
and patient history.
Nucleic Acid Amplification test (NAAT)performed on the
[employer] platform.
--- NOTE | 2024-06-05 08:00 | PTCARENOTE ---
Pt rec'd from night RN, drowsy /arousable, oriented to self (baseline) follows commands, DAWSON, restraints in place. VSS on room air, bradycardic on tele, BPs WNL. IVF infusing, sarmiento in place, see flowsheet. Pt fed breakfast, poor appetite noted.
Oral and sarmiento care provided, Q2T maintained. Bed alarm in place for safety.
--- NOTE | 2024-06-05 08:34 | CM ---
Chart reviewed
Patient is a [facility] resident [facility] since 2020
Spoke with Deann at [facility]
PLOF: total care bed to w/c via will
PCP: Smooth Gordon
[facility]armacy: [facility]
PLAN: Return to [facility] when medically stable.
[facility]
Report #: [phone]
Fax #: [phone]
[2024-06-05] MEDS: STERILE WATER FOR INJECTION 10 ML IV (08:37)
[2024-06-05] MEDS: ROCEPHIN 1000 MG IV (08:37)
--- NOTE | 2024-06-05 09:36 | W.PN.CARDCBS ---
Today's Communication / Plan
-
observe off propranolol
Impression / Plan
-
PCP: Dr. Smooth Gordon
Cardiology: Unknown
Impression:
Admitted with bradycardia, sepsis and UTI 06/04/24
Sepsis
UTI, purulent drainage from Doss
Persistent to permanent Afib with slow ventricular response
Not chronically anticoagulated due to age and patient choice
ZULAY
Hyperkalemia
Previous admission to for GIB 06/23/22 until 06/29/22
Lewy body dementia
Echo 06/04/24: EF 55-60%, PASP 54mmHg, mild MR
Plan:
Heart rate is improved off propranolol. ECG with heart rate in 60's, somewhat higher on telemetry
He appears comfortable.
Echo is satisfactory
ZULAY is improved
Treatment of urosepsis per primary service.
Continue to monitor heart rate, restart low dose metoprolol if tachycardiac
Eventual resumption of enalapril and furosemide?
Clinical summary: 88-year-old man with Lewy body dementia and permanent atrial fibrillation admitted with hypotension and hypothermia on June 14, presumed sepsis, bradycardic in the emergency department on propranolol with heart rates in the
40s treated with atropine. Clinical sepsis, influenza and COVID-negative, not anticoagulated
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
Subjective
Date of Service: June 05, 2024:
He is comfortable
Medications: Ceftriaxone IV
136/63, pulse 94, respirate 17, afebrile, sats 99%, weight is 90.8 kg, up 0.8 kg, intake and output roughly even, lungs clear, ireg rate and rhythm, JVD is OK, 1 + edema
Chest x-ray: Coarse markings
Troponin 0.014, BUN and creatinine 31 and 1.3, creatinine had been 1.7, BUN had been 44, potassium is 5
EKG: Atrial fibrillation with slow ventricular response this morning
Objective
Labs:
06/05/24 04:55
06/05/24 04:55
Labs
Hgb 11.1 g/dL (13.0-18.0) L 06/05/24 04:55
Hct 35.1 % (39.0-52.0) L 06/05/24 04:55
Plt Count 196 10^3/uL (130-400) 06/05/24 04:55
Sodium 138 mmol/L (135-145) 06/05/24 04:55
Potassium 5.0 mmol/L (3.5-5.1) 06/05/24 04:55
BUN 31 mg/dl (9-20) H 06/05/24 04:55
Creatinine 1.3 mg/dL (0.7-1.3) 06/05/24 04:55
Glucose 81 mg/dl (70-99) 06/05/24 04:55
Troponins
06/04/24 06/04/24 06/04/24
03:01 10:12 15:09
Troponin I 0.015 0.014 Cancelled
06/04/24
21:09
Troponin I Cancelled
Vital Signs and I&O:
Vital Signs
Temp Pulse Resp BP Pulse Ox
37.2 C 94 17 136/63 99
06/05/24 07:49 06/05/24 05:01 06/05/24 05:01 06/05/24 05:00 06/05/24 05:01
Vital Signs
Temp Pulse Resp BP Pulse Ox
37.2 C 94 17 136/63 99
06/05/24 07:49 06/05/24 05:01 06/05/24 05:01 06/05/24 05:00 06/05/24 05:01
Intake & Output
06/03/24 06/04/24 06/05/24 06/06/24
07:59 07:59 07:59 07:59
Intake Total 2300 / 2300
Output Total 2450 / 2450
Balance -150 / -150
Physical Exam
Physical Exam
see above
--- NOTE | 2024-06-05 13:01 | W.PN.HOSP.TC ---
Today's Communication/Plan
-
Assessment / Plan
Assessment / Plan
Gen-somnolent, NAD
HEENT-NC, AT, anicteric, clear oral mm
Neck-supple
CV-reg, no M, +S1/S2
Lungs-clear B/L
Abd-soft, NT, ND
Musculoskeletal-no edema, no deformity
Skin-warm and dry
Neuro-grossly non-focal, no tremor
Mr. Salvador is a 88-year-old male with medical history of Lewy body dementia, HFpEF, essential tremor, and A-fib who presented from, and A-fib who presented from local shelter with bradycardia, hypotension, and hypoxia. He was found to have
heart rate of 40, BP 80/50, SpO2 76% on room air. He was at his baseline mental status at the time and was sent to the ED for further evaluation. In the ED EKG showed slow A-fib with junctional bradycardia. He was also hypotensive. He was given
dose of atropine with improvement in his BP and heart rate. He later became aggressive with ED staff and was given a dose of IV Ativan after which she was somnolent, bradycardic, and hypotensive. He was bolused 2.5 L of resuscitative fluids and
vasopressors were ordered. Labs revealed leukocytosis of 13,000, ZULAY with a creatinine of 1.7, and urinalysis showing gross pyuria. Doss catheter was placed with purulent urinary output. He has been admitted to the ICU for further evaluation and
management of septic shock secondary to suspected urinary tract infection.
Sepsis:
-Secondary to urinary tract infection, urine cultures growing Enterococcus
-Continue antibiotic treatment with ceftriaxone 1 g IV daily, follow-up sensitivities
-Continue aggressive resuscitative fluids
-Initially vasopressors were ordered but never initiated, was hypotensive but not in shock as initially thought
-Follow-up cultures
ZULAY:
-Resolved
-Suspect secondary to poor perfusion in the setting of septic shock
-Continue IV fluids and treatment of underlying urinary tract infection
-Holding TJ inhibitor
Metabolic acidosis:
-Secondary to sepsis with renal dysfunction
-Continue IV fluids and bicarb
-Monitor
Bradycardia:
-Now resolved off home propranolol
-Monitor
-Received a dose of atropine in the ED with improvement
-Cardiology following
Permanent A-fib:
-Holding rate control medications due to bradycardia and hypotension
Lewy body dementia:
-With behavioral disturbance
-Hold sedating medications as able
-Mirtazapine was recently added on 05/11/2024
CODE STATUS: Changed to DNR
Anticipated Discharge: > 48 hours
Subjective/Interval History
-
Date of Service: June 05, 2024
Patient was seen and examined at bedside this morning. Somnolent but hemodynamically stable, not on pressors.
Objective Data
-
Labs:
Laboratory Results
06/05/24
04:55
WBC 14.0 H
Hgb 11.1 L
Hct 35.1 L
Plt Count 196
Sodium 138
Potassium 5.0
Chloride 110 H
Carbon Dioxide 15 L
BUN 31 H
Creatinine 1.3
Glucose 81
Calcium 8.2 L
Vital Signs:
Vital Signs
Temp Pulse Resp BP Pulse Ox
99 F 51 19 105/44 100
06/05/24 07:49 06/05/24 11:45 06/05/24 11:45 06/05/24 11:00 06/05/24 11:45
I&O
06/04/24 06/05/24 06/06/24
06:59 06:59 06:59
Intake Total 2300 / 2300 620 / 620
Output Total 2450 / 2450 430 / 430
Balance -150 / -150 190 / 190
Review of Systems
-
Unable to obtain full review of systems at this time due to: Dementia
Physical Exam
-
General: No Apparent Distress
--- NOTE | 2024-06-05 13:10 | PTCARENOTE ---
Plan discussed with care team on grand rounds, pt was downgraded to med surg...orders rec'd for IVF rate to be lowered to 75/hr. Pt sleeping when undisturbed, restraints removed at 10:00. Pt declines to be turned at noon, states 'let me sleep. I do
not want to go to the side.' Pt remains pleasant and thankful for care. Bed alarm maintained for safety.
[2024-06-05] MEDS: SODIUM BICARBONATE 100 MEQ IV (13:47)
[2024-06-05] MEDS: UNASYN IV (16:11)
--- NOTE | 2024-06-05 17:00 | PTCARENOTE ---
Pt annoyed with no no board on right arm, asking RN to take it off, asking for scissors to 'cut off' IV tubing, emotional support provided with +response, IV site wrapped with gauze to cover/maintain patency. Pt thirsty, assisted to drink juice.
Safe environment maintained.
[2024-06-05] MEDS: LOVENOX SC (17:46)
--- NOTE | 2024-06-05 18:10 | PTCARENOTE ---
Ready bed assigned ([id number]) at 18:05, phone call placed to give report but patient not yet assigned to RN on floor, UC took message and floor will call ICU back to take report when able.
--- NOTE | 2024-06-05 22:30 | TRANSFER ---
Report given to Annalisa Chandler RN. Pt transferred to [facility] [id number] via bed w/ personal belongings.
[2024-06-06] VITALS: BMI 26.4
[2024-06-06] MEDS: UNASYN IV ×5 (00:33→23:20)
[2024-06-06] MEDS: NSS 1000 IV (00:33)
--- NOTE | 2024-06-06 04:56 | PTCARENOTE ---
Pt was tx from ICU. Assessed as per flow sheet. Pt confused at baseline. BLE weak. Pt is tremulous. Doss in place draining pink tinged urine. Speech consult ordered as pt is coughing after sips of water. No s/s of distress assessed. Will continue
to monitor.
[2024-06-06 06:00] VITALS: BMI 26.7
[2024-06-06 07:30] VITALS: BP 114/78
[2024-06-06] MEDS: STERILE WATER FOR INJECTION IV (08:54)
[2024-06-06] MEDS: HALDOL 4 MG IM (11:18)
--- NOTE | 2024-06-06 14:44 | W.PN.HOSP.TC ---
Today's Communication/Plan
-
Assessment / Plan
Assessment / Plan
Gen-awake and alert, NAD
HEENT-NC, AT, anicteric, clear oral mm
CV-controlled rate
Lungs-clear B/L
Abd-soft, NT, ND, Doss catheter in place blood-tinged urine and sediment in line and bag
Musculoskeletal-no edema, no deformity
Skin-warm and dry
Neuro-grossly non-focal, no tremor
Mr. Salvador is a 88-year-old male with medical history of Lewy body dementia, HFpEF, essential tremor, and A-fib who presented from, and A-fib who presented from local alf with bradycardia, hypotension, and hypoxia. He was found to have
heart rate of 40, BP 80/50, SpO2 76% on room air. He was at his baseline mental status at the time and was sent to the ED for further evaluation. In the ED EKG showed slow A-fib with junctional bradycardia. He was also hypotensive. He was given
dose of atropine with improvement in his BP and heart rate. He later became aggressive with ED staff and was given a dose of IV Ativan after which she was somnolent, bradycardic, and hypotensive. He was bolused 2.5 L of resuscitative fluids and
vasopressors were ordered. Labs revealed leukocytosis of 13,000, ZULAY with a creatinine of 1.7, and urinalysis showing gross pyuria. Doss catheter was placed with purulent urinary output. He has been admitted to the ICU for further evaluation and
management of septic shock secondary to suspected urinary tract infection.
Sepsis:
-Secondary to urinary tract infection, urine cultures growing Enterococcus
-Change antibiotics to Unasyn for Enterococcus coverage
-IV fluids now discontinued
-Initially vasopressors were ordered but never initiated, was hypotensive but not in shock as initially thought, currently normotensive without antihypertensive medications
ZULAY:
-Resolved
-Suspect secondary to poor perfusion in the setting of septic shock
-Continue IV fluids and treatment of underlying urinary tract infection
-Holding TJ inhibitor
Metabolic acidosis:
-Secondary to sepsis with renal dysfunction
-Given IV fluids and bicarb, now discontinued
-Monitor, clinically stable
Bradycardia:
-Now resolved off home propranolol
-Monitor
-Received a dose of atropine in the ED with improvement
-Cardiology following
Permanent A-fib:
-Holding rate control medications due to bradycardia and hypotension
Lewy body dementia:
-With behavioral disturbance
-Mirtazapine was recently added on 05/11/2024 which we have now continued
-Haldol as needed
CODE STATUS: Changed to DNR
Anticipated Discharge: 24 - 48 hours
Subjective/Interval History
-
Date of Service: June 06, 2024
Patient was seen and examined at bedside this morning. He did not want to be evaluated and asked for me to go away.
Objective Data
-
Labs:
Laboratory Results
06/06/24
06:00
Sodium Cancelled
Potassium Cancelled
Chloride Cancelled
Carbon Dioxide Cancelled
BUN Cancelled
Creatinine Cancelled
Glucose Cancelled
Calcium Cancelled
Vital Signs:
Vital Signs
Temp Pulse Resp BP Pulse Ox
99.7 F 89 18 114/78 99
06/05/24 23:50 06/06/24 07:30 06/06/24 07:30 06/06/24 07:30 06/06/24 11:12
I&O
06/05/24 06/06/24 06/07/24
06:59 06:59 06:59
Intake Total 2300 / 2300 2790 / 2790
Output Total 2450 / 2450 1555 / 1555
Balance -150 / -150 1235 / 1235
Review of Systems
-
Unable to obtain full review of systems at this time due to: Dementia
Physical Exam
-
General: No Apparent Distress
--- NOTE | 2024-06-06 15:12 | W.PN.CARDCBS ---
Today's Communication / Plan
-
Resume telemetry if feasible
Hold propranolol
Possibly restart furosemide in a.m.
Impression / Plan
-
PCP: Dr. Smooth Gordon
Cardiology: Unknown
Impression:
Admitted with bradycardia, sepsis and UTI 06/04/24
Sepsis
UTI, purulent drainage from Doss
Persistent to permanent Afib with slow ventricular response
Not chronically anticoagulated due to age and patient choice
ZULAY
Hyperkalemia
Previous admission to for GIB 06/23/22 until 06/29/22
Lewy body dementia
Echo 06/04/24: EF 55-60%, PASP 54mmHg, mild MR
Plan:
He seems improved at this time.
Heart rate is better and bradycardia seems to have resolved though we do not have him on telemetry at the present time. Will try to place him back on telemetry, presuming he does not take his leads off.
He has lower extremity edema. If blood pressure stable will restart furosemide in the a.m. Will continue to hold enalapril.
He seems improved from the standpoint of urosepsis.
Acute kidney injury is improved.
For now, continue to hold beta-charity
His echocardiogram showed preserved systolic function.
No anticoagulation based on prior determinations.
Clinical summary: 88-year-old man with Lewy body dementia and permanent atrial fibrillation admitted with hypotension and hypothermia on June 14, presumed sepsis, bradycardic in the emergency department on propranolol with heart rates in the
40s treated with atropine. Clinical sepsis, influenza and COVID-negative, not anticoagulated
Progress Note - Break Off Worker
Subjective
Date of Service: June 06, 2024:
Transferred to fourth floor from ICU yesterday, more awake, only complaint is that he is cold
Current medications: Subcu Lovenox, Unasyn, Remeron 7.5 twice daily, mysoline
114/78, pulse 89, respirate 18, afebrile, sats 99%, weight is 91.9 kg, up 1 kg, conversant, asked me to call his mother, asked if I was from [place], only complaint is that he is cold, head neck exam is unremarkable, lungs are clear, irregular
rate and rhythm without obvious murmurs or gallops, 2+ edema
Labs yesterday white count 14, hemoglobin 11.1, CO2 15, anion gap 13, BUN and creatinine 31 and 1.3, creatinine had been 1.7
Urine with Enterococcus, blood cultures negative
Currently not on telemetry, on vital signs, heart rate seems controlled
Objective
Labs:
06/06/24 06:00
Labs
Hgb 11.1 g/dL (13.0-18.0) L 06/05/24 04:55
Hct 35.1 % (39.0-52.0) L 06/05/24 04:55
Plt Count 196 10^3/uL (130-400) 06/05/24 04:55
Sodium Cancelled 06/06/24 06:00
Potassium Cancelled 06/06/24 06:00
BUN Cancelled 06/06/24 06:00
Creatinine Cancelled 06/06/24 06:00
Glucose Cancelled 06/06/24 06:00
Troponins
06/04/24 06/04/24 06/04/24
03:01 10:12 15:09
Troponin I 0.015 0.014 Cancelled
06/04/24
21:09
Troponin I Cancelled
Vital Signs and I&O:
Vital Signs
Temp Pulse Resp BP Pulse Ox
37.6 C 89 18 114/78 99
06/05/24 23:50 06/06/24 07:30 06/06/24 07:30 06/06/24 07:30 06/06/24 11:12
Vital Signs
Temp Pulse Resp BP Pulse Ox
37.6 C 89 18 114/78 99
06/05/24 23:50 06/06/24 07:30 06/06/24 07:30 06/06/24 07:30 06/06/24 11:12
Intake & Output
06/04/24 06/05/24 06/06/24 06/07/24
07:59 07:59 07:59 07:59
Intake Total 2300 / 2425 2790 / 2790
Output Total 2450 / 2560 1555 / 1555
Balance -150 / -135 1235 / 1235
Physical Exam
Physical Exam
See above
[2024-06-06 15:30] VITALS: BP 149/65
--- NOTE | 2024-06-06 15:30 | PTOTSP ---
Speech Therapy Evaluation:
Pt presents with clinical signs of oropharyngeal dysphagia, likely chronic related to hx of Lewy Body Dementia, compounded by current mentation in the setting of Sepsis 2/2 UTI. VSE completed 06/2022 with no aspiration. On this date, pt demonstrated
consistent s/sx of aspiration following all liquid trials and intermittent wet/gurgly vocal quality. CXR currently with PNA. WBC elevated.
Recommend:
1. Temporary NPO
2. Essential medications crushed in puree
3. Oral care 3x/daily
4. EGG GRADER to follow re: candidacy for diet initiation and need for instrumental assessment.
[2024-06-06] MEDS: LOVENOX 40 MG SC (17:03)
--- NOTE | 2024-06-06 18:19 | PTCARENOTE ---
pt agitated, aggressive, hitting and verbally abusive to staff since morning. was made aware. pt put on B/L mitts as per order. pt was able to take off Mitts and pulled IV out. Pt tried pulling onto his Sarmiento as well. Pt tried to hit staff when
tried to stop the bleeding. pt placed on B/L mitts along with soft limbs as per MD order, in addition to IM Haldol. pt pulled IV sites times 4, DCed sarmiento as per MD order. pt cooperative at 1700 took 1 limb restraint on R hand. During med pass, pt
tried to take IV on the R hand while pt on Left wrist soft limb. pt constantly pulling to get off restraint. upon assessing pt's Left wrist. pt found to have swollen wrist. made aware. XR done. awaiting results. pt off soft limb restraint at this
time, with R hand mitts only.
[2024-06-06 19:40] VITALS: BP 157/57
[2024-06-06] MEDS: REMERON 7.5 MG PO (21:40)
[2024-06-06] MEDS: MYSOLINE 100 MG PO (21:40)
[2024-06-06 23:50] VITALS: BP 161/63
[2024-06-07] VITALS (7 sets, daily range): BP systolic 93–170; BP diastolic 65–86; BMI 26.6
[2024-06-07] MEDS: HALDOL 2 MG IM (02:41)
[2024-06-07] MEDS: UNASYN IV ×3 (05:36→17:48)
[2024-06-07] MEDS: STERILE WATER FOR INJECTION IV (07:12)
[2024-06-07 07:38] LABS: % Basophils 0.6 % (0-2); % Eosinophils 1.9 % (0-6); % Immature Granulocytes 2.7 % (0-0.5); % Lymphocytes 12.3 % (20.5-51.1); % Monocytes 7.4 % (1.7-9.3); % Neutrophils 75.1 % (42.2-75.2); Absolute Basophils 0.1 10^3/uL (0-0.2); Absolute Eosinophils 0.2 10^3/uL (0-0.7); Absolute Immature Granulocytes 0.3 10^3/uL (0-0.05); Absolute Lymphocytes 1.4 10^3/uL (1.2-3.4); Absolute Monocytes 0.8 10^3/uL (0.1-0.6); Absolute Neutrophils 8.5 10^3/uL (1.4-6.5); Hematocrit 29.4 % (39.0-52.0); Hemoglobin 9.7 g/dL (13.0-18.0); Mean Corpuscular Hgb 27.4 pg (27.0-31.0); Mean Corpuscular Volume 83.1 fL (80.0-94.0); Mean Platelet Volume 9.6 fL (7.4-10.4); Nucleated Red Blood Cells % 0 % (-); Platelet Count 162 10^3/uL (130-400); Red Blood Cell Count 3.54 10^6/uL (4.70-6.10); Red Cell Dist. Width 15.9 % (11.5-14.5); White Blood Cell Count 11.3 10^3/uL (4.8-10.8)
[2024-06-07 07:56] LABS: Blood Urea Nitrogen 14 mg/dl (9-20); Calcium 8.2 mg/dl (8.4-10.2); Carbon Dioxide 17 mmol/L (22-30); Chloride 112 mmol/L (98-107); Estimated Creatinine Clearance 64 ml/min; Glucose 81 mg/dl (70-99); Magnesium 1.6 mg/dl (1.6-2.3); Phosphorus 3.4 mg/dl (2.5-4.5); Potassium 4.4 mmol/L (3.5-5.1); Sodium 139 mmol/L (135-145); eGFR > 60.00
--- NOTE | 2024-06-07 08:07 | CON.ORTHO ---
Consultation - Orthopedics
History
History of Present Illness:
This is an 88-year-old gentleman, chronic resident of local detention. He has history of dementia, A-fib, CHF, hypertension, hyperlipidemia, anemia, GI bleed.
He is sent to the ED by detention staff after discovering during routine vital sign check tonight that his heart rate was low, blood pressure was low and reported pulse ox was low.
Patient apparently has remained asymptomatic, at his baseline mental state and baseline functional status. Work-up/Tx ongoing. He has been quite combative during this admission and has required restraints. Currently on a 1:1. Developed some left
wrist swelling/pain and xray ordered. nothing acute noted. Chronic changes. Patient was appropriate at the time of consultation (witness by 1:1 associate), requested by the HARMAN Melton, however did not open his eyes or lift his head.
Requested a cup of H2O. He and I discussed our service, reporting he was a [place] [employer] on a [employer]. Not currently complaining of any wrist pain/swelling.
Past History
ED Past Medical History: Arrthythmia (Chronic A-fib), CHF, HTN, Hypercholesterolemia and Other (Dementia; anemia, GI bleed)
ED Past Surgical History: Appendectomy
Social History
Personal:
Living: detention
Employment: Retired
Family History
Family History: Unable to obtain
ROS
12 negative except those mentioned in the HPI
Allergies / Home Medications
Allergy/AdvReac Type Severity Reaction Status Date / Time
No Known Allergies Allergy Verified 06/04/24 02:41
�Medication �Instructions �Recorded
Eventa 1 cap PO BID 06/24/22
acetaminophen 325 mg tablet 650 mg PO Q4HPRN PRN mild 06/24/22
pain/fever
enalapril maleate 10 mg tablet 10 mg PO DAILY Blood Pressure 06/24/22
furosemide 40 mg tablet 40 mg PO DAILY Fluid 06/24/22
Retention/Swelling
magnesium hydroxide 400 mg/5 mL 30 ml PO DAILYPRN PRN no BM 06/24/22
oral suspension (Milk of Magnesia)
primidone 50 mg tablet 100 mg PO HS 06/24/22
propranolol 20 mg tablet 20 mg PO BID Blood Pressure 06/24/22
memantine 10 mg tablet 10 mg PO DAILY #30 tabs 06/29/22
polyethylene glycol 3350 17 gram 17 g PO DAILY #30 ea 06/29/22
oral powder packet
bisacodyl 10 mg rectal suppository 10 mg VA BIDPRN PRN if no bm aftr 06/04/24
mom
mirtazapine 7.5 mg tablet 7.5 mg PO HS Neurological Condition 06/04/24
pantoprazole 40 mg tablet,delayed 40 mg PO DAILY Gastrointestinal 06/04/24
release Issue
sertraline 25 mg tablet 25 mg PO DAILY 06/04/24
sodium phosphates 19 gram-7 135 ml VA DAILYPRN PRN if no bm 06/04/24
gram/118 mL enema (Enema) aftr dulcalax
Vital Signs / Lab Results
Temp Pulse Resp BP Pulse Ox
100.0 F 82 24 160/65 98
06/07/24 05:05 06/07/24 03:30 06/07/24 03:30 06/07/24 03:30 06/07/24 03:30
06/07/24 07:18
06/07/24 07:18
Assessment / Plan
PE: Resting in bed. Temp 100.0. Did respond appropriately to verbal stimuli. Left wrist/hand with minimal swelling. No pain to palpation. Ranging of the wrist/hand not painful. Makes a fist and gives a 'thumbs-up' at my request. palpable radial
pulse. DNVI LUE
Xrays: No acute changes. No fracture/dislocation. Positive ulnar variance. Severe narrowing at the radiocarpal joint with secondary degenerative changes of subchondral sclerosis. Mild flattening and remodeling along the proximal articular surface of
the scaphoid. The lunate is tilted in a dorsal direction, suggesting dorsal intercalated segmental instability. Old ununited ulnar styloid fracture fragment. No erosion
Impression: Left wrist pain. OA with additional chronic changes
Plan: Nothing acute noted on patient's xrays. Patient not currently complaining of any left wrist/hand pain. Supportive measures. Continue treatment via the primary team. May follow-up outpatient if desired, once medically optimized and discharged,
however, likely nothing additional to offer short of OT/brace if symptoms recur/persist. Pain control. Orthopaedics to sign off for now. Please reengage if necessary
[2024-06-07] MEDS: FLOMAX PO ×2 (10:13→10:16)
[2024-06-07] MEDS: FLUSH (NSS) 1 FLUSH IV (12:15)
--- NOTE | 2024-06-07 13:59 | PTOTSP ---
Speech Pathology
Dysphagia Follow Up
Impression:
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 Overt s/s of reflux
observed.
Recommend:
1. Trial puree solids (IDDSI 4), mildly thick liquids (IDDSI 2)
2. Meds crushed in puree
3. Strategies: FULL supervision and assistance, only feed when awake and alert, small bites, single sips, if overt s/s of aspiration arise make NPO and await speech re-eval
4. Reflux precautions
5. SHOP AND ALTERATION TAILOR service to follow up re: advance diet as able; consider instrumental study to determine safest and least restrictive diet level
--- NOTE | 2024-06-07 14:11 | W.PN.HOSP.TC ---
Today's Communication/Plan
-
Assessment / Plan
Assessment / Plan
Gen-awake and alert, NAD
HEENT-NC, AT, anicteric, clear oral mm
CV-controlled rate
Lungs-clear B/L
Abd-soft, NT, ND
Musculoskeletal-no edema, no deformity
Skin-warm and dry
Neuro-grossly non-focal, no tremor
Mr. Salvador is a 88-year-old male with medical history of Lewy body dementia, HFpEF, essential tremor, and A-fib who presented from, and A-fib who presented from local [facility] with bradycardia, hypotension, and hypoxia. He was found to have
heart rate of 40, BP 80/50, SpO2 76% on room air. He was at his baseline mental status at the time and was sent to the ED for further evaluation. In the ED EKG showed slow A-fib with junctional bradycardia. He was also hypotensive. He was given
dose of atropine with improvement in his BP and heart rate. He later became aggressive with ED staff and was given a dose of IV Ativan after which she was somnolent, bradycardic, and hypotensive. He was bolused 2.5 L of resuscitative fluids and
vasopressors were ordered. Labs revealed leukocytosis of 13,000, ZULAY with a creatinine of 1.7, and urinalysis showing gross pyuria. Doss catheter was placed with purulent urinary output. He has been admitted to the ICU for further evaluation and
management of septic shock secondary to suspected urinary tract infection.
Sepsis:
-Secondary to urinary tract infection, urine cultures growing Enterococcus resistant to tetracyclines
-Changed antibiotics to Unasyn for Enterococcus coverage
-IV fluids now discontinued
-Initially vasopressors were ordered but never initiated, was hypotensive but not in shock as initially thought, currently normotensive without antihypertensive medications
Acute urinary retention:
-Doss placed in ED with large amount of urine output
-Started on Flomax
-Doss catheter is down to be removed
-Monitor for recurrent urinary retention
ZULAY:
-Resolved
-Suspect secondary to poor perfusion in the setting of septic shock in addition to acute urinary retention
-Restarting home TJ inhibitor
Metabolic acidosis:
-Secondary to sepsis with renal dysfunction
-Given IV fluids and bicarb, will give additional IV bicarb push today
-Monitor, clinically stable
Bradycardia:
-Now resolved off home propranolol
-Monitor
-Received a dose of atropine in the ED with improvement
-Cardiology following
Permanent A-fib:
-Have been holding home medications due to bradycardia and hypotension
-Will restart beta-blockade cautiously as needed
Hypertension:
-Had been holding home enalapril due to ZULAY and hypotension
-Hypotension resolved now slightly hypertensive, will restart home enalapril at lower dose of 5 mg daily
-Monitor and adjust regimen as needed
Lewy body dementia:
-With behavioral disturbance
-Mirtazapine was recently added on 05/11/2024 which we have now continued
-Haldol as needed
CODE STATUS: Changed to DNR
Anticipated Discharge: 24 - 48 hours
Subjective/Interval History
-
Date of Service: June 07, 2024
Patient was seen and examined at bedside this morning. Resting comfortably. No acute distress.
Objective Data
-
Labs:
Laboratory Results
06/07/24
07:18
WBC 11.3 H
Hgb 9.7 L
Hct 29.4 L
Plt Count 162
Sodium 139
Potassium 4.4
Chloride 112 H
Carbon Dioxide 17 L
BUN 14
Creatinine 0.9
Glucose 81
Calcium 8.2 L
Vital Signs:
Vital Signs
Temp Pulse Resp BP Pulse Ox
98.1 F 81 16 166/66 98
06/07/24 11:30 06/07/24 11:30 06/07/24 11:30 06/07/24 11:30 06/07/24 11:30
I&O
06/06/24 06/07/24 06/08/24
06:59 06:59 06:59
Intake Total 2790 / 2790 640 / 640 120 / 120
Output Total 1555 / 1555 1120 / 1120
Balance 1235 / 1235 -480 / -480 120 / 120
Review of Systems
-
Unable to obtain full review of systems at this time due to: Dementia
Physical Exam
-
General: No Apparent Distress
[2024-06-07] MEDS: SODIUM BICARBONATE 100 MEQ IV (14:51)
[2024-06-07] MEDS: LOVENOX 40 MG SC (17:39)
--- NOTE | 2024-06-07 19:27 | W.PN.CARDCBS ---
Today's Communication / Plan
-
Restart furosemide 40 mg a day
DC telemetry
We will sign off, please call if problems
Impression / Plan
-
PCP: Dr. Smooth Gordon
Cardiology: Unknown
Impression:
Admitted with bradycardia, sepsis and UTI 06/04/24
Sepsis
UTI, purulent drainage from Doss
Persistent to permanent Afib with slow ventricular response
Not chronically anticoagulated due to age and patient choice
ZULAY
Hyperkalemia
Previous admission to for GIB 06/23/22 until 06/29/22
Lewy body dementia
Echo 06/04/24: EF 55-60%, PASP 54mmHg, mild MR
Plan:
Although agitated related to Lewy body dementia, he is hemodynamically much improved.
Heart rate is well-controlled off propranolol. Would not restart. We have monitored on telemetry, okay to discontinue telemetry at this time.
Enalapril has been restarted for hypertension.
He still has edema, renal function has normalized, as he recovers from sepsis, will restart furosemide 40 mg a day.
By echo he had preserved systolic function.
The decision was made prior to admission that he was not an anticoagulation candidate.
From cardiac standpoint okay to proceed with discharge planning. We will sign off, please call if questions.
Clinical summary: 88-year-old man with Lewy body dementia and permanent atrial fibrillation admitted with hypotension and hypothermia on June 14, presumed sepsis, bradycardic in the emergency department on propranolol with heart rates in the
40s treated with atropine. Clinical sepsis, influenza and COVID-negative, not anticoagulated
Progress Note - Environmental Geologist
Subjective
Date of Service: June 07, 2024:
He is fairly agitated requires one-to-one supervision
Currently sleeping comfortable, I did not disturb
Medications: IV Unasyn, Lovenox, Remeron, primidone, tamsulosin, enalapril 5 mg daily
144/86, pulse 78, respiratory rate 16, afebrile, saturations 96%, resting comfortably, still with lower extremity edema, did not examine heart or lungs so as not to agitate patient, neck veins looks okay
Hemoglobin 9.7, white count 11.3, potassium is 4.4, CO2 17, anion gap is 10, BUN and creatinine are 14 and 0.9
Telemetry: Heart rate well-controlled, no bradycardia
Objective
Labs:
06/07/24 07:18
06/07/24 07:18
Labs
Hgb 9.7 g/dL (13.0-18.0) L 06/07/24 07:18
Hct 29.4 % (39.0-52.0) L 06/07/24 07:18
Plt Count 162 10^3/uL (130-400) 06/07/24 07:18
Sodium 139 mmol/L (135-145) 06/07/24 07:18
Potassium 4.4 mmol/L (3.5-5.1) 06/07/24 07:18
BUN 14 mg/dl (9-20) 06/07/24 07:18
Creatinine 0.9 mg/dL (0.7-1.3) 06/07/24 07:18
Glucose 81 mg/dl (70-99) 06/07/24 07:18
Vital Signs and I&O:
Vital Signs
Temp Pulse Resp BP Pulse Ox
37.3 C 78 16 144/86 96
06/07/24 15:55 06/07/24 15:55 06/07/24 15:55 06/07/24 15:55 06/07/24 15:55
Vital Signs
Temp Pulse Resp BP Pulse Ox
37.3 C 78 16 144/86 96
06/07/24 15:55 06/07/24 15:55 06/07/24 15:55 06/07/24 15:55 06/07/24 15:55
Intake & Output
06/05/24 06/06/24 06/07/24 06/08/24
07:59 07:59 07:59 07:59
Intake Total 2300 / 2425 2790 / 2790 640 / 640 1040 / 1040
Output Total 2450 / 2560 1555 / 1555 1120 / 1120 600 / 600
Balance -150 / -135 1235 / 1235 -480 / -480 440 / 440
Physical Exam
Physical Exam
See above
[2024-06-07] MEDS: REMERON 7.5 MG PO (21:37)
[2024-06-07] MEDS: MYSOLINE 100 MG PO (21:37)
[2024-06-08] MEDS: UNASYN IV ×2 (00:15→06:41)
[2024-06-08 03:55] VITALS: BP 154/64
--- NOTE | 2024-06-08 05:14 | PTCARENOTE ---
Pt aao x self only. Pt was straight cath overnight for 500ml. Pt due for a Sarmiento cath this morning pt bladder scan is 250ml, pt refusing to be bothered & prefers to sleep.HISTORICAL RECORDS ADMINISTRATOR song writer made aware of pt's bladder scan results & pt refusal a per HISTORICAL RECORDS ADMINISTRATOR ok to
wait on sarmiento catheter at this time as bladder scan is 250ml & continue to monitor pt.
[2024-06-08 06:00] VITALS: BMI 27.1
[2024-06-08 09:04] VITALS: BP 174/59
[2024-06-08] MEDS: STERILE WATER FOR INJECTION IV (09:08)
[2024-06-08] MEDS: FLOMAX PO (09:11)
[2024-06-08] MEDS: LASIX PO (09:11)
--- NOTE | 2024-06-08 09:28 | W.PN.HOSP.TC ---
Today's Communication/Plan
-
see A/P
Assessment / Plan
Assessment / Plan
Mr. Savlador is a 88-year-old male with medical history of Lewy body dementia, HFpEF, essential tremor, and A-fib who presented from local senior care with bradycardia, hypotension, and hypoxia. He was found to have heart rate of 40, BP 80/50, SpO2
76% on room air. He was at his baseline mental status at the time and was sent to the ED for further evaluation.
In the ED, his EKG showed slow A-fib with junctional bradycardia. He was also hypotensive. He was given dose of atropine with improvement in his BP and heart rate. He later became aggressive with ED staff and was given a dose of IV Ativan after
which she was somnolent, bradycardic, and hypotensive.
He was bolused 2.5 L of resuscitative fluids and vasopressors were ordered.
Labs revealed leukocytosis of 13,000, ZULAY with a creatinine of 1.7, and urinalysis showing gross pyuria. Doss catheter was placed with purulent urinary output.
A/P:
# severe sepsis POA, resolved. Secondary to complicated urinary tract infection
urine cultures growing Enterococcus resistant to tetracyclines
[facility] for Enter[facility] coverage, would treat for 14 days total
s/p IV fluids
vasopressors was ordered but never initiated
# Acute urinary retention, resolved
Doss placed in ED with large amount of urine output, Doss catheter is removed
Started on Flomax
Monitor for recurrent urinary retention
# ZULAY, resolved
SCr 2.3 -> 0.9
Suspect secondary to poor perfusion in the setting of septic shock in addition to acute urinary retention
Restarted home TJ inhibitor
# Metabolic acidosis, secondary to sepsis with renal dysfunction
s/p IV fluids and bicarb
Monitor, clinically stable
# Bradycardia
Received a dose of atropine in the ED with improvement
Now resolved off home propranolol
Monitor HR
Cardiology was following, now signed off
# Permanent A-fib, rate controlled
Would cont to hold off propranolol in setting of bradycardia
# Hypertension:
Hypotension resolved, resumed CHOPPER OPERATOR enalapril and adjusted to home dose
# Lewy body dementia with behavioral disturbance
# Clinical deconditioning now mostly bedbound state
Mirtazapine was recently added on 05/11/2024 which we have now continued
resume CHOPPER OPERATOR primidone for tremor, resume CHOPPER OPERATOR Zoloft
Haldol as needed
CODE STATUS: Changed to DNR
DW RN
Extensive discussion with DIL at bedside. There is concern for pt's declining MS over the past days/weeks. Pt appears more lethargic with loss of appetite.
total time spent 51 min
Anticipated Discharge: 24 - 48 hours
Subjective/Interval History
-
Date of Service: June 08, 2024
Objective Data
-
Labs:
Laboratory Results
06/08/24
06:00
WBC Pending
Hgb Pending
Hct Pending
Plt Count Pending
Sodium Pending
Potassium Pending
Chloride Pending
Carbon Dioxide Pending
BUN Pending
Creatinine Pending
Glucose Pending
Calcium Pending
Vital Signs:
Vital Signs
Temp Pulse Resp BP Pulse Ox
36.8 C 66 20 174/59 100
06/08/24 09:06 06/08/24 09:04 06/08/24 03:55 06/08/24 09:04 06/08/24 03:55
I&O
06/07/24 06/08/24 06/09/24
06:59 06:59 06:59
Intake Total 640 / 640 1040 / 1040
Output Total 1120 / 1120 1100 / 1100
Balance -480 / -480 -60 / -60
Review of Systems
-
Unable to obtain full review of systems at this time due to: Dementia and Acuity
Physical Exam
-
General: Well Developed, Well Nourished, Comfortable, Conversant and Appears Chronically Ill
HEENT: Normocephalic and Atraumatic
Respiratory: Clear to Auscultation and Non Labored Respirations; Negative Accessory Resp Muscle Use
Cardiac: Regular Rhythm and S1/S2
GI: Soft and Nontender
Skin: Warm
Neuro: Awake (arousable ) and Tremors
Psych: Calm and Apparent Dementia; Negative Intact Judgement/Insight
Data Reviewed
-
Labs: Labs Reviewed by me (pending from today )
[2024-06-08 10:48] VITALS: BP 123/51
--- NOTE | 2024-06-08 11:35 | CM ---
Patient seen bedside.
Patient on 1:1
continue IV anbx.
PLAN: Return to [facility] when medically stable.
[facility]
Report #: [phone]
Fax #: [phone]
[2024-06-08] MEDS: AMPICILLIN 108 MG IV ×3 (12:45→23:06)
[2024-06-08 15:53] VITALS: BP 177/72
[2024-06-08] MEDS: LOVENOX 40 MG SC (17:19)
[2024-06-08] MEDS: MYSOLINE 100 MG PO (20:07)
[2024-06-08] MEDS: REMERON 7.5 MG PO (20:07)
[2024-06-08 23:34] VITALS: BP 138/66
[2024-06-09] MEDS: TYLENOL 650 MG PO (00:48)
[2024-06-09 05:45] VITALS: BMI 27.1
[2024-06-09] MEDS: AMPICILLIN 108 MG IV ×2 (06:14→13:08)
[2024-06-09 07:15] VITALS: BP 82/55
--- NOTE | 2024-06-09 08:59 | W.PN.HOSP.TC ---
Addendum entered and electronically signed by Vinita Tuttle MD 06/09/24 14:04:
total DC time 38 min
Original Note:
Today's Communication/Plan
-
see AP
Assessment / Plan
Assessment / Plan
Mr. Salvador is a 88-year-old male with medical history of Lewy body dementia, HFpEF, essential tremor, and A-fib who [facility] local [facility] with bradycardia, hypotension, and hypoxia. He was found to have heart rate of 40, BP 80/50, SpO2
76% on room air. He was at his baseline mental status at the time and was sent to the ED for further evaluation.
In the ED, his EKG showed slow A-fib with junctional bradycardia. He was also hypotensive. He was given dose of atropine with improvement in his BP and heart rate. He later became aggressive with ED staff and was given a dose of IV Ativan after
which she was somnolent, bradycardic, and hypotensive.
He was bolused 2.5 L of resuscitative fluids and vasopressors were ordered.
Labs revealed leukocytosis of 13,000, ZULAY with a creatinine of 1.7, and urinalysis showing gross pyuria. Doss catheter was placed with purulent urinary output.
A/P:
# severe sepsis POA, resolved. Secondary to complicated urinary tract infection
urine cultures growing Enterococcus resistant to tetracyclines
Cont ampicillin (from [facility]) for Enterococcus coverage, would treat for 14 days total
s/p IV fluids. Of note, vasopressors was ordered but never initiated
# Acute urinary retention
Doss placed in ED with large amount of urine output, failed voiding trial, Doss reinserted 06/08 evening
Started on Flomax
# ZULAY, resolved
SCr 2.3 -> 0.9
Suspect secondary to poor perfusion in the setting of septic shock in addition to acute urinary retention
Restarted home TJ inhibitor
# Metabolic acidosis, secondary to sepsis with renal dysfunction
s/p IV fluids and bicarb
Monitor, clinically stable
# Bradycardia
Received a dose of atropine in the ED with improvement
Now resolved off home propranolol
Monitor HR
Cardiology was following, now signed off
# Permanent A-fib, rate controlled
Would cont to hold off propranolol in setting of bradycardia
# Hypertension:
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
# Lewy body dementia with behavioral disturbance
# Clinical deconditioning now mostly bedbound state
Mirtazapine was recently added on 05/11/2024 which we have now continued
resume JACK MACHINE OPERATOR primidone for tremor, resumed JACK MACHINE OPERATOR Zoloft
Haldol as needed
# Pedal edema
restarted furosemide 40 mg a day per card
CODE STATUS: Changed to DNR
DW RN
Called son and DIL several times. Calls not answered.
Had extensive discussion with DIL at bedside 06/08. There is concern for pt's MS decline over the past days/weeks. Pt appears more lethargic with loss of appetite.
total time spent 51 min
Anticipated Discharge: Today
Subjective/Interval History
-
Date of Service: June 09, 2024
Objective Data
-
Labs:
Laboratory Results
06/08/24 06/09/24
06:00 06:00
WBC Cancelled Pending
Hgb Cancelled Pending
Hct Cancelled Pending
Plt Count Cancelled Pending
Sodium Cancelled Pending
Potassium Cancelled Pending
Chloride Cancelled Pending
Carbon Dioxide Cancelled Pending
BUN Cancelled Pending
Creatinine Cancelled Pending
Glucose Cancelled Pending
Calcium Cancelled Pending
Vital Signs:
Vital Signs
Temp Pulse Resp BP Pulse Ox
36.4 C 73 18 138/66 95
06/08/24 23:34 06/08/24 23:34 06/08/24 23:34 06/08/24 23:34 06/08/24 23:34
I&O
06/08/24 06/09/24 06/10/24
06:59 06:59 06:59
Intake Total 1040 / 1040 240 / 240
Output Total 1100 / 1100 925 / 925
Balance -60 / -60 -685 / -685
Review of Systems
-
Unable to obtain full review of systems at this time due to: Dementia and Acuity
Physical Exam
-
General: Well Developed, Well Nourished, Comfortable, Conversant and Appears Chronically Ill
HEENT: Normocephalic and Atraumatic
Respiratory: Clear to Auscultation and Non Labored Respirations; Negative Accessory Resp Muscle Use
Cardiac: Regular Rhythm and S1/S2
GI: Soft and Nontender
Skin: Warm
Neuro: Awake (arousable ) and Tremors
Psych: Calm and Apparent Dementia; Negative Intact Judgement/Insight
Data Reviewed
-
Labs: Labs Reviewed by me (pending from today )
[2024-06-09] MEDS: FLOMAX 0.4 MG PO (09:47)
[2024-06-09] MEDS: LASIX 40 MG PO (09:47)
[2024-06-09 09:51] VITALS: BP 168/61
[2024-06-09] MEDS: VASOTEC 10 MG PO (09:54)
[2024-06-09] MEDS: ZOLOFT 25 MG PO (09:54)
[2024-06-09] MEDS: STERILE WATER FOR INJECTION IV (10:40)
--- NOTE | 2024-06-09 11:46 | PTCARENOTE ---
patient cooperative this morning, saying thank you when assistance given. took medications and ate some breakfast this morning, saying he is not hungry. plan of care on going.
--- NOTE | 2024-06-09 11:53 | CM ---
Pt is cleared for discharge back to [facility]. CM spoke with admissions and SWer; they are agreeable to pt returning.
Ambulance transport being requested.
PLAN: Return to [facility] today.
[facility]
Report #: [phone]
Fax #: [phone]
[2024-06-09] MEDS: FLUSH (NSS) 2 FLUSH IV (13:08)
--- NOTE | 2024-06-09 13:42 | W.DCSUMMARY ---
Discharge Summary
Discharge Data
Date of Admission: 06/04/24
Date of Discharge: 06/09/24
-
Pending Results: No
Hospital Course
Principal Diagnosis:
Severe sepsis on admission due to complicated urinary tract infection
Acute urinary retention
Resolved acute kidney injury (ZULAY)
Chronic Diagnoses:�
Permanent A-fib, rate controlled
Hypertension
Lewy body dementia with behavioral disturbance. Patient not orientated at baseline
Clinical deconditioning now mostly bedbound state with pedal edema
Consultations:�
Cardiology
Nephrology
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
Procedures:�
None
Clinical course:�
This is a 88-year-old male with past medical history as stated above who presented with bradycardia, hypotension, and hypoxia.
Problem 1:
Severe sepsis on admission due to complicated urinary tract infection.
His urine cultures grew Enterococcus sensitive to ampicillin but resistant to tetracyclines.
The patient received IV ampicillin while in the hospital, and he was discharged with oral amoxicillin to continue his UTI treatment (total 14 days course).
Problem 2:
Acute urinary retention.
Sarmiento was placed on admission which was removed, but he failed voiding trial and Sarmiento was reinserted on 06/08 evening.
Flomax was started this admission which he can continue going forward.
Problem 3:
ZULAY, resolved.
His creatinine improved from 2.3 on admission to 0.9.
Problem 4:
Bradycardia, resolved after discontinuation of home propranolol.
Of note, patient did receive a dose of atropine in the emergency room.
His heart rate improved, was stable at around 50-70 following discontinuation of his home propranolol.
As for the rest of his medical problems, they were stable during his hospital stay.
Discharge Plan
-
Patient Disposition: Care Home/SNF
Discharge Diagnosis/Procedures: Sepsis secondary to complicated urinary tract infection (urine cultures growing Enterococcus);
Acute urinary retention now requiring sarmiento;
Resolved ZULAY;
Clinical deterioration and deconditioning with loss of appetite- may need goals of care discussion;
Severe bradycardia (stopped propranolol);
Lewy body dementia with behavioral disturbance
Condition: Fair
Diet: As tolerated and Other diet
Additional Diets: puree solids with mildly thick liquids
Activity: As tolerated
Driving Restrictions: No driving
Activity Restrictions/Additional Instructions:
Follow with Urology for your urinary retention (sarmiento reinserted on 06/08). Exchange sarmiento every 4 weeks.
Referrals:
Smooth Gordon, [Family Provider] - in less than 1 week
Additional Discharge Medication Instructions: Continue amoxicillin for 10 days
Prescriptions:
New
tamsulosin 0.4 mg Capsule
0.4 mg PO DAILY Qty: 30 0RF
amoxicillin 500 mg capsule
500 mg PO Q8H 10 Days Qty: 30 0RF
Continued
furosemide 40 mg Tablet
40 mg PO DAILY
primidone 50 mg Tablet
100 mg PO HS
acetaminophen 325 mg Tablet
650 mg PO Q4HPRN PRN (Reason: mild pain/fever)
enalapril maleate 10 mg Tablet
10 mg PO DAILY
magnesium hydroxide [Milk of Magnesia] 400 mg/5 mL Suspension
30 ml PO DAILYPRN PRN (Reason: no BM)
Eventa
1 cap PO BID
polyethylene glycol 3350 17 gram Powder In Packet
17 g PO DAILY Qty: 30 0RF
memantine 10 mg Tablet
10 mg PO DAILY Qty: 30 0RF
sertraline 25 mg Tablet
25 mg PO DAILY
mirtazapine 7.5 mg Tablet
7.5 mg PO HS
bisacodyl 10 mg suppository
10 mg FL BIDPRN PRN (Reason: if no bm aftr mom)
pantoprazole 40 mg tablet,delayed release (DR/EC)
40 mg PO DAILY
Enema 19-7 gram/118 mL enema
135 ml FL DAILYPRN PRN (Reason: if no bm aftr dulcalax)
Rx Instructions:
prn unresponsive to suppositories
Discontinued
propranolol 20 mg Tablet
20 mg PO BID
Discharge Orders:
Discharge Patient (As Directed); Ordered 06/09/24
Ordered By: Vinita Tuttle
Discharge Date and Time
Print Language: CYMRAES
[2024-06-09 15:20] VITALS: BP 111/65
== END 2024-06-09 18:45 | DRG 871 ==
LOC: 4 EAST ACU 08:13
PROVIDERS: Emergency Medicine; Internal Medicine; ADMITTING PHYSICIAN Hospitalist; ATTENDING PHYSICIAN Internal Medicine; CONSULT PHYSICIAN Internal Medicine Critical Care Medicine; CONSULT PHYSICIAN Orthopaedic Surgery; EMERGENCY PHYSICIAN Emergency Medicine; FAMILY PHYSICIAN Student in an Organized Health Care Education/Training Program; OTHER PHYSICIAN Internal Medicine Cardiovascular Disease
DX: A41.81 Sepsis due to Enterococcus (principal); R65.21 Severe sepsis with septic shock; N39.0 Urinary tract infection, site not specified; N17.9 Acute kidney failure, unspecified; I50.32 Chronic diastolic (congestive) heart failure; F02.818 Dementia in other diseases classified elsewhere, unspecified severity, with other behavioral disturbance; Z16.29 Resistance to other single specified antibiotic; I48.21 Permanent atrial fibrillation; F02.811 Dementia in other diseases classified elsewhere, unspecified severity, with agitation; E87.20 Acidosis, unspecified; I11.0 Hypertensive heart disease with heart failure; G31.83 Neurocognitive disorder with Lewy bodies; R09.02 Hypoxemia; B95.2 Enterococcus as the cause of diseases classified elsewhere; E87.5 Hyperkalemia; G25.0 Essential tremor; K21.9 Gastro-esophageal reflux disease without esophagitis; Z79.899 Other long term (current) drug therapy; K57.30 Diverticulosis of large intestine without perforation or abscess without bleeding; Z87.442 Personal history of urinary calculi; D64.9 Anemia, unspecified; R73.9 Hyperglycemia, unspecified; Z78.1 Physical restraint status; E78.00 Pure hypercholesterolemia, unspecified; E86.0 Dehydration
CPT/HCPCS: 51798; 71045; 73100; 80048; 80053; 80061; 81003; 81015; 83605; 83735; 84100; 84443; 84484; 85025; 85027; 87040; 87070; 87077; 87086; 87186; 87502; 92526; 92610; 93005; 93306; 96361; 96372; 96374; 99291

== ENCOUNTER → 2024-06-15 12:07 | Outpatient (REF) | payer MEDICARE, OTHER, SELFPAY ==
[2024-06-15 12:43] LABS: % Basophils 0.7 % (0-2); % Eosinophils 3.7 % (0-6); % Immature Granulocytes 0.7 % (0-0.5); % Monocytes 11.2 % (1.7-9.3); % Neutrophils 60.7 % (42.2-75.2); Absolute Basophils 0.1 10^3/uL (0-0.2); Absolute Eosinophils 0.3 10^3/uL (0-0.7); Absolute Immature Granulocytes 0.1 10^3/uL (0-0.05); Absolute Neutrophils 5.3 10^3/uL (1.4-6.5); Hematocrit 29.5 % (39.0-52.0); Hemoglobin 9.3 g/dL (13.0-18.0); Mean Corp Hgb Conc. 31.5 g/dL (33.0-37.0); Mean Corpuscular Volume 85.5 fL (80.0-94.0); Mean Platelet Volume 10.4 fL (7.4-10.4); Nucleated Red Blood Cells % 0 % (-); Platelet Count 164 10^3/uL (130-400); Red Blood Cell Count 3.45 10^6/uL (4.70-6.10); Red Cell Dist. Width 16.4 % (11.5-14.5); White Blood Cell Count 8.8 10^3/uL (4.8-10.8)
[2024-06-15 13:07] LABS: Blood Urea Nitrogen 13 mg/dl (9-20); Calcium 7.6 mg/dl (8.4-10.2); Carbon Dioxide 28 mmol/L (22-30); Chloride 102 mmol/L (98-107); Glucose 96 mg/dl (70-99); Potassium 2.9 mmol/L (3.5-5.1); Sodium 136 mmol/L (135-145); eGFR > 60.00
== END ==
LOC: OLABN 12:07
PROVIDERS: ATTENDING PHYSICIAN Student in an Organized Health Care Education/Training Program
DX: I10 Essential (primary) hypertension (principal)
CPT/HCPCS: 36415; 80048; 85025

== ENCOUNTER → 2024-07-06 11:50 | Outpatient (REF) | payer OTHER, MEDICARE, SELFPAY ==
[2024-07-06 13:04] LABS: Blood Urea Nitrogen 9 mg/dl (9-20); Calcium 8.1 mg/dl (8.4-10.2); Carbon Dioxide 28 mmol/L (22-30); Chloride 102 mmol/L (98-107); Glucose 72 mg/dl (70-99); Potassium 3.4 mmol/L (3.5-5.1); Sodium 135 mmol/L (135-145); eGFR > 60.00
== END ==
LOC: OLABN 11:50
PROVIDERS: ATTENDING PHYSICIAN Student in an Organized Health Care Education/Training Program
DX: I10 Essential (primary) hypertension (principal)
CPT/HCPCS: 36415; 80048

== ENCOUNTER → 2024-07-27 21:00 | Outpatient (REF) | payer OTHER, MEDICARE, SELFPAY ==
[2024-07-28 11:22] LABS: Urine Albumin 2+ (Neg - Trace); Urine Bilirubin Negative (Negative); Urine Character Slightly Cloudy (Clear); Urine Color Yellow; Urine Glucose Negative (Negative); Urine Ketone Negative (Negative); Urine Leukocyte 3+ (Negative); Urine Nitrite Positive (Negative); Urine Occult Blood 3+ (Negative); Urine Specific Gravity 1.005 (<1.030); Urine Urobilinogen Negative (Neg - 1+)
[2024-07-28 11:28] LABS: Urine Squamous Cell 0-2 /LPF (Few)
[2024-07-28 11:29] LABS: Urine Bacteria Moderate (Negative); Urine Red Blood Cell 26-30 /HPF (0-2); Urine White Cell 90-100 /HPF (0-5)
== END ==
LOC: OLABN 21:00
PROVIDERS: ATTENDING PHYSICIAN Student in an Organized Health Care Education/Training Program
DX: R25.1 Tremor, unspecified (principal); I50.32 Chronic diastolic (congestive) heart failure; A41.9 Sepsis, unspecified organism
CPT/HCPCS: 81003; 81015; 87086

== ENCOUNTER → 2024-07-28 09:57 | Outpatient (REF) | payer OTHER, MEDICARE, SELFPAY ==
[2024-07-28 10:48] LABS: % Basophils 0.8 % (0-2); % Eosinophils 4.4 % (0-6); % Immature Granulocytes 0.4 % (0-0.5); % Monocytes 8.4 % (1.7-9.3); Absolute Basophils 0.1 10^3/uL (0-0.2); Absolute Eosinophils 0.4 10^3/uL (0-0.7); Absolute Lymphocytes 2.5 10^3/uL (1.2-3.4); Absolute Monocytes 0.8 10^3/uL (0.1-0.6); Absolute Neutrophils 5.4 10^3/uL (1.4-6.5); Hematocrit 32.2 % (39.0-52.0); Hemoglobin 10.3 g/dL (13.0-18.0); Mean Corpuscular Hgb 28.7 pg (27.0-31.0); Mean Corpuscular Volume 89.7 fL (80.0-94.0); Mean Platelet Volume 10.9 fL (7.4-10.4); Nucleated Red Blood Cells % 0 % (-); Platelet Count 157 10^3/uL (130-400); Red Blood Cell Count 3.59 10^6/uL (4.70-6.10); Red Cell Dist. Width 14.4 % (11.5-14.5); White Blood Cell Count 9.2 10^3/uL (4.8-10.8)
[2024-07-28 12:28] LABS: ALT (SGPT) 14 U/L (0-50); AST (SGOT) 23 U/L (17-59); Albumin 2.7 g/dl (3.5-5.0); Alkaline Phosphatase 104 U/L (38-126); Blood Urea Nitrogen 10 mg/dl (9-20); Calcium 8.3 mg/dl (8.4-10.2); Carbon Dioxide 25 mmol/L (22-30); Chloride 106 mmol/L (98-107); Glucose 78 mg/dl (70-99); Potassium 3.9 mmol/L (3.5-5.1); Sodium 137 mmol/L (135-145); Total Bilirubin 0.5 mg/dl (0.2-1.3); Total Protein 5.4 g/dl (6.3-8.2); eGFR > 60.00
== END ==
LOC: OLABN 09:57
PROVIDERS: ATTENDING PHYSICIAN Student in an Organized Health Care Education/Training Program
DX: I10 Essential (primary) hypertension (principal)
CPT/HCPCS: 36415; 80053; 83735; 85025

== ENCOUNTER → 2024-08-03 05:15 | Outpatient (REF) | payer OTHER, MEDICARE, SELFPAY ==
[2024-08-03 14:09] LABS: Urine Albumin 3+ (Neg - Trace); Urine Bilirubin Negative (Negative); Urine Character Cloudy (Clear); Urine Color Yellow; Urine Glucose Negative (Negative); Urine Ketone Negative (Negative); Urine Leukocyte 3+ (Negative); Urine Nitrite Positive (Negative); Urine Occult Blood 4+ (Negative); Urine Urobilinogen Negative (Neg - 1+)
[2024-08-03 15:13] LABS: Urine Bacteria Many (Negative); Urine White Cell >100 /HPF (0-5)
[2024-08-03 15:15] LABS: Urine Mucus Few; Urine Squamous Cell 0-2 /LPF (Few)
== END ==
LOC: OLABN 05:15
PROVIDERS: ATTENDING PHYSICIAN Student in an Organized Health Care Education/Training Program
DX: R25.1 Tremor, unspecified (principal); I50.32 Chronic diastolic (congestive) heart failure; A41.9 Sepsis, unspecified organism
CPT/HCPCS: 81003; 81015; 87086

== ENCOUNTER → 2024-08-05 15:30 | Outpatient (REF) | payer OTHER, MEDICARE, SELFPAY ==
[2024-08-05 18:14] LABS: Urine Albumin 2+ (Neg - Trace); Urine Bilirubin Negative (Negative); Urine Character Clear (Clear); Urine Color Yellow; Urine Glucose Negative (Negative); Urine Ketone Negative (Negative); Urine Leukocyte 3+ (Negative); Urine Nitrite Negative (Negative); Urine Occult Blood 4+ (Negative); Urine Specific Gravity 1.005 (<1.030); Urine Urobilinogen Negative (Neg - 1+)
[2024-08-05 18:42] LABS: Urine Bacteria Many (Negative); Urine White Cell >100 /HPF (0-5)
== END ==
LOC: OLABN 15:30
PROVIDERS: ATTENDING PHYSICIAN Student in an Organized Health Care Education/Training Program
DX: R25.1 Tremor, unspecified (principal); I50.32 Chronic diastolic (congestive) heart failure; A41.9 Sepsis, unspecified organism
CPT/HCPCS: 81003; 81015; 87077; 87086

== ENCOUNTER → 2024-11-09 23:00 | Outpatient (REF) | payer OTHER, MEDICARE, SELFPAY ==
[2024-11-10 12:31] LABS: Urine Character Cloudy (Clear)
[2024-11-10 14:55] LABS: Urine Squamous Cell 0-2 /LPF (Few)
[2024-11-10 14:56] LABS: Urine White Cell >100 /HPF (0-5)
== END ==
LOC: OLABN 23:00
PROVIDERS: ATTENDING PHYSICIAN Student in an Organized Health Care Education/Training Program
DX: R25.1 Tremor, unspecified (principal); A41.9 Sepsis, unspecified organism
CPT/HCPCS: 81003; 81015; 87086

== ENCOUNTER → 2024-11-12 03:00 | Outpatient (REF) | payer OTHER, MEDICARE, SELFPAY ==
[2024-11-12 13:48] LABS: Urine Character Cloudy (Clear)
[2024-11-12 14:13] LABS: Urine Squamous Cell 0-2 /LPF (Few)
[2024-11-12 14:15] LABS: Urine White Cell 30-40 /HPF (0-5)
[2024-11-12 14:16] LABS: Urine Red Blood Cell 21-25 /HPF (0-2)
== END ==
LOC: OLABN 03:00
PROVIDERS: ATTENDING PHYSICIAN Student in an Organized Health Care Education/Training Program
DX: I50.32 Chronic diastolic (congestive) heart failure (principal); R25.1 Tremor, unspecified; A41.9 Sepsis, unspecified organism
CPT/HCPCS: 81003; 81015; 87077; 87086

== ENCOUNTER → 2024-11-14 18:59 | Outpatient (REF) | payer OTHER, MEDICARE, SELFPAY ==
[2024-11-14 19:55] LABS: ALT (SGPT) 11 U/L (0-50); AST (SGOT) 21 U/L (17-59); Albumin 3.4 g/dl (3.5-5.0); Alkaline Phosphatase 100 U/L (38-126); Blood Urea Nitrogen 26 mg/dl (9-20); Calcium 8.9 mg/dl (8.4-10.2); Carbon Dioxide 27 mmol/L (22-30); Chloride 107 mmol/L (98-107); Glucose 89 mg/dl (70-99); Magnesium 2.2 mg/dl (1.6-2.3); Potassium 4.0 mmol/L (3.5-5.1); Sodium 139 mmol/L (135-145); Total Protein 6.4 g/dl (6.3-8.2); eGFR 48.04
== END ==
LOC: OLABN 18:59
PROVIDERS: ATTENDING PHYSICIAN Student in an Organized Health Care Education/Training Program
DX: I50.32 Chronic diastolic (congestive) heart failure (principal)
CPT/HCPCS: 80053; 83735; 83880

== ENCOUNTER → 2024-11-17 09:47 | Outpatient (REF) | payer OTHER, MEDICARE, SELFPAY | LOC: OLABN 09:47 | PROVIDERS: ATTENDING PHYSICIAN Student in an Organized Health Care Education/Training Program | DX: I50.32 Chronic diastolic (congestive) heart failure (principal) | CPT/HCPCS: 36415; 83880 ==

== ENCOUNTER → 2024-11-18 11:06 | Outpatient (REF) | payer MEDICARE, OTHER, SELFPAY ==
[2024-11-18 11:57] LABS: ALT (SGPT) < 10 U/L (0-50); AST (SGOT) 22 U/L (17-59); Albumin 3.3 g/dl (3.5-5.0); Alkaline Phosphatase 89 U/L (38-126); Blood Urea Nitrogen 25 mg/dl (9-20); Calcium 8.4 mg/dl (8.4-10.2); Carbon Dioxide 27 mmol/L (22-30); Chloride 107 mmol/L (98-107); Glucose 85 mg/dl (70-99); Potassium 4.1 mmol/L (3.5-5.1); Sodium 139 mmol/L (135-145); Total Protein 6.0 g/dl (6.3-8.2); eGFR 52.51
[2024-11-18 15:51] LABS: Magnesium 2.1 mg/dl (1.6-2.3)
== END ==
LOC: OLABN 11:06
PROVIDERS: ATTENDING PHYSICIAN Student in an Organized Health Care Education/Training Program
DX: I50.32 Chronic diastolic (congestive) heart failure (principal)
CPT/HCPCS: 36415; 80053; 83735

== ENCOUNTER → 2024-11-23 10:16 | Outpatient (REF) | payer MEDICARE, OTHER, SELFPAY ==
[2024-11-23 12:39] LABS: Blood Urea Nitrogen 29 mg/dl (9-20); Calcium 8.5 mg/dl (8.4-10.2); Carbon Dioxide 25 mmol/L (22-30); Chloride 107 mmol/L (98-107); Glucose 75 mg/dl (70-99); Potassium 4.6 mmol/L (3.5-5.1); Sodium 138 mmol/L (135-145); eGFR > 60.00
== END ==
LOC: OLABN 10:16
PROVIDERS: ATTENDING PHYSICIAN Student in an Organized Health Care Education/Training Program
DX: I10 Essential (primary) hypertension (principal)
CPT/HCPCS: 36415; 80048; 83880

== ENCOUNTER → 2024-12-03 10:53 | Outpatient (REF) | payer OTHER, MEDICARE, SELFPAY ==
[2024-12-03 12:38] LABS: Hematocrit 29.6 % (39.0-52.0); Hemoglobin 9.5 g/dL (13.0-18.0); Mean Corp Hgb Conc. 32.1 g/dL (33.0-37.0); Mean Corpuscular Volume 89.4 fL (80.0-94.0); Nucleated Red Blood Cells % 0 % (-); Platelet Count 208 10^3/uL (130-400); Red Cell Dist. Width 14.6 % (11.5-14.5)
[2024-12-03 13:25] LABS: ALT (SGPT) 16 U/L (0-50); AST (SGOT) 30 U/L (17-59); Albumin 2.9 g/dl (3.5-5.0); Alkaline Phosphatase 107 U/L (38-126); Blood Urea Nitrogen 51 mg/dl (9-20); Calcium 8.2 mg/dl (8.4-10.2); Carbon Dioxide 24 mmol/L (22-30); Chloride 105 mmol/L (98-107); Glucose 76 mg/dl (70-99); Iron 48 ug/dl (49-181); Magnesium 2.2 mg/dl (1.6-2.3); Potassium 4.9 mmol/L (3.5-5.1); Sodium 135 mmol/L (135-145); Total Protein 5.5 g/dl (6.3-8.2); eGFR 25.16
[2024-12-03 13:34] LABS: Total Iron Binding Capacity 160 ug/dl (261-462)
[2024-12-03 14:02] LABS: Ferritin 406.0 ng/ml (17.9-464.0)
[2024-12-04 12:09] LABS: Urine Character Cloudy (Clear)
[2024-12-04 12:43] LABS: Urine White Cell >100 /HPF (0-5)
== END ==
LOC: OLABN 10:53
PROVIDERS: ATTENDING PHYSICIAN Student in an Organized Health Care Education/Training Program
DX: I10 Essential (primary) hypertension (principal); I50.32 Chronic diastolic (congestive) heart failure; R25.1 Tremor, unspecified; R82.90 Unspecified abnormal findings in urine
CPT/HCPCS: 36415; 80053; 81003; 81015; 82728; 83540; 83550; 83735; 83880; 85025; 87086

== ENCOUNTER → 2024-12-05 07:11 | Outpatient (REF) | payer OTHER, MEDICARE, SELFPAY ==
[2024-12-05 12:35] LABS: Hematocrit 30.6 % (39.0-52.0); Hemoglobin 9.8 g/dL (13.0-18.0); Mean Corp Hgb Conc. 32.0 g/dL (33.0-37.0); Mean Corpuscular Volume 90.0 fL (80.0-94.0); Nucleated Red Blood Cells % 0 % (-); Platelet Count 211 10^3/uL (130-400); Red Cell Dist. Width 14.4 % (11.5-14.5)
[2024-12-05 12:46] LABS: ALT (SGPT) 14 U/L (0-50); AST (SGOT) 24 U/L (17-59); Albumin 2.8 g/dl (3.5-5.0); Alkaline Phosphatase 100 U/L (38-126); Blood Urea Nitrogen 45 mg/dl (9-20); Calcium 8.1 mg/dl (8.4-10.2); Carbon Dioxide 21 mmol/L (22-30); Chloride 108 mmol/L (98-107); Glucose 79 mg/dl (70-99); Potassium 4.2 mmol/L (3.5-5.1); Sodium 136 mmol/L (135-145); Total Protein 5.5 g/dl (6.3-8.2); eGFR 29.53
== END ==
LOC: OLABN 07:11
PROVIDERS: ATTENDING PHYSICIAN Student in an Organized Health Care Education/Training Program
DX: R63.4 Abnormal weight loss (principal)
CPT/HCPCS: 36415; 80053; 83880; 85025